=== PATIENT | male | born 1955 | race Caucasian/White ===

== ENCOUNTER 2020-07-02 10:21 | Inpatient (IN) | payer SELFPAY ==
[~2020-07-02] VITALS: Ht 182.9 cm; Wt 80.1 kg
--- NOTE | 2020-07-02 10:40 | ED Chest Pain ---
General Chief Complaint: Chest Pain Stated Complaint: CHEST PAIN Source: patient Exam Limitations: no limitations History of Present Illness Date Seen by Provider: Jul 02, 2020 Time Seen by Provider: 10:25 Initial Comments 65-year-old male presents with chest pain. Patient reports he started having chest pain yesterday. It has been on and off with the longest episode being 15 minutes. He does not recall anything that made it worse or better. He does not shortness of breath, nausea, vomiting, fever, chills. He did get mildly diaphoretic with one episode. Pain is kind mid substernal and epigastric. Patient denies any medications or medical conditions, he does smoke daily. Patient does not have any family history of early heart disease or heart attacks. Patient is not having any chest pain currently Allergies and Home Medications Allergies Coded Allergies: No Known Drug Allergies (Unverified , 07/02/20) Home Medications No Active Prescriptions or Reported Meds Patient Home Medication List Home Medication List Reviewed: Yes Review of Systems Review of Systems Constitutional: No chills, No fever Respiratory: Denies Cough, Denies Shortness of Air Cardiovascular: Chest Pain; Denies Irregular Heart Rate, Denies Lightheadedness, Denies Palpitations Gastrointestinal: Denies Abdominal Pain, Denies Diarrhea, Denies Nausea, Denies Vomiting Musculoskeletal: no symptoms reported Skin: no symptoms reported Psychiatric/Neurological: No Symptoms Reported Endocrine: No Symptoms Reported Hematologic/Lymphatic: No Symptoms Reported Past Wxmleds-Yjygqy-Adgyox Hx Past Med/Social Hx: Reviewed Nursing Past Med/Soc Hx Physical Exam Vital Signs Vital Signs - First Documented 07/02/20 10:42 Temp 36.0 Pulse 99 Resp 16 B/P (MAP) 172/90 (117) Pulse Ox 98 O2 Delivery Room Air Capillary Refill : Height, Weight, BMI Height: '" Weight: lbs. oz. kg; BMI Method: General Appearance: No Apparent Distress, WD/WN Neck: Full Range of Motion, Normal Inspection Respiratory: Lungs Clear, Normal Breath Sounds, No Accessory Muscle Use Cardiovascular: Regular Rate, Rhythm, Normal Peripheral Pulses Gastrointestinal: Non Tender, Soft Extremity: Normal Capillary Refill Neurologic/Psychiatric: Alert, Oriented x3, No Motor/Sensory Deficits, Normal Mood/Affect, filling machine operator II-XII Norm as Tested Skin: Normal Color, Warm/Dry Progress/Results/Core Measures Results/Orders Lab Results Laboratory Tests Test 07/02/20 10:34 Range/Units White Blood Count 7.8 4.3-11.0 10^3/uL Red Blood Count 5.12 4.35-5.85 10^6/uL Hemoglobin 14.6 13.3-17.7 G/DL Hematocrit 43 40-54 % Mean Corpuscular Volume 84 80-99 FL Mean Corpuscular Hemoglobin 29 25-34 PG Mean Corpuscular Hemoglobin Concent 34 32-36 G/DL Red Cell Distribution Width 13.2 10.0-14.5 % Platelet Count 327 130-400 10^3/uL Mean Platelet Volume 10.0 7.4-10.4 FL Immature Granulocyte % (Auto) 0 % Neutrophils (%) (Auto) 59 42-75 % Lymphocytes (%) (Auto) 25 12-44 % Monocytes (%) (Auto) 9 0-12 % Eosinophils (%) (Auto) 6 0-10 % Basophils (%) (Auto) 1 0-10 % Neutrophils # (Auto) 4.6 1.8-7.8 X 10^3 Lymphocytes # (Auto) 1.9 1.0-4.0 X 10^3 Monocytes # (Auto) 0.7 0.0-1.0 X 10^3 Eosinophils # (Auto) 0.5 H 0.0-0.3 10^3/uL Basophils # (Auto) 0.1 0.0-0.1 10^3/uL Immature Granulocyte # (Auto) 0.0 0.0-0.1 10^3/uL Prothrombin Time 12.4 12.2-14.7 SEC INR Comment 0.9 0.8-1.4 Activated Partial Thromboplast Time 26 24-35 SEC Sodium Level 139 135-145 MMOL/L Potassium Level 3.4 L 3.6-5.0 MMOL/L Chloride Level 103 98-107 MMOL/L Carbon Dioxide Level 23 21-32 MMOL/L Anion Gap 13 5-14 MMOL/L Blood Urea Nitrogen 12 7-18 MG/DL Creatinine 1.04 0.60-1.30 MG/DL Estimat Glomerular Filtration Rate > 60 BUN/Creatinine Ratio 12 Glucose Level 129 H 70-105 MG/DL Calcium Level 8.9 8.5-10.1 MG/DL Corrected Calcium 9.0 8.5-10.1 MG/DL Magnesium Level 1.9 1.6-2.4 MG/DL Total Bilirubin 0.2 0.1-1.0 MG/DL Aspartate Amino Transf (AST/SGOT) 15 5-34 U/L Alanine Aminotransferase (ALT/SGPT) 13 0-55 U/L Alkaline Phosphatase 137 H 40-136 U/L Troponin I 0.33 *H <0.30 NG/ML Pro-B-Type Natriuretic Peptide 1348.0 H <75.0 PG/ML Total Protein 7.2 6.4-8.2 GM/DL Albumin 3.9 3.2-4.5 GM/DL My Orders Orders - ROBBINS,JAMAAL L DO Cbc With Automated Diff (07/02/20 10:23) Magnesium (07/02/20 10:23) Chest 1 View Ap/Pa Only (07/02/20 10:23) Ekg Tracing (07/02/20 10:23) Comprehensive Metabolic Panel (07/02/20 10:23) Protime With Inr (07/02/20 10:23) Partial Thromboplastin Time (07/02/20 10:23) Monitor-Rhythm Ecg Trace Only (07/02/20 10:23) Lipid Panel (07/03/20 06:00) Ed Iv/Invasive Line Start (07/02/20 10:23) Troponin I Fs (07/02/20 10:23) Probnp Fs (07/02/20 10:23) Aspirin Chewable Tablet (Baby Aspirin Ch (07/02/20 11:45) Ticagrelor Tablet (Brilinta Tablet) (07/02/20 12:00) Medications Given in ED Current Medications Medications Dose Ordered Sig/Ceferino Route Start Time Stop Time Status Last Admin Dose Admin Aspirin 324 mg ONCE ONCE PO 07/02/20 11:45 07/02/20 11:46 DC 07/02/20 12:04 324 MG Ticagrelor 180 mg ONCE ONCE PO 07/02/20 12:00 07/02/20 12:01 DC 07/02/20 12:04 180 MG Vital Signs/I&O 07/02/20 10:42 Temp 36.0 Pulse 99 Resp 16 B/P (MAP) 172/90 (117) Pulse Ox 98 O2 Delivery Room Air Progress Progress Note : Time: 12:09 Progress Note Patient with nonspecific changes on EKG, no current chest pain. However he does have a slight bump in troponin. Discussed with Dr. Venegas and Dr. Ortega. We will transfer to [facility] for likely heart catheterization. Patient stable upon transfer. Initial ECG Impression Date: Jul 02, 2020 Initial ECG Impression Time: 10:20 Initial ECG Rate: 97 Initial ECG Rhythm: Normal Sinus Initial ECG Intervals WA 214 Initial ECG Impression: Nonspecific Changes Comment Patient with abnormal EKG, nonspecific changes with prolonged WA interval, likely LVH and left atrial enlargement. Nonspecific ST changes Diagnostic Imaging Diagonstic Imaging: Xray Plain Films/CT/US/NM/MRI: chest Comments [facility] [place], [place] NAME: JAZMÍN BURGER [facility] REC#: [id number] PT STATUS: REG ER : 1955 PHYSICIAN: JAMAAL ROBBINS DO ADMIT DATE: 07/02/20/ER FS Draft Date of Exam:07/02/20 CHEST 1 VIEW AP/PA ONLY INDICATION: Chest pain. Frontal chest obtained at 10:23 a.m. FINDINGS: Heart and mediastinal silhouette are normal in appearance. There are COPD changes. There is some scarring in the right apex with questionable small nodule. We have no previous studies for comparison. There is no consolidation or pleural fluid or pneumothorax. IMPRESSION: COPD changes with some right apical scar. There is a questionable small nodular density versus scar in the right apex, for which follow-up is recommended. Dictated on workstation # [id number] Dict: 07/02/20 1032 Trans: 07/02/20 1041 [id number] Interpreted by: SAI SOSA MD Electronically signed Departure Communication (Admissions) Time/Spoke to Admitting Phy: 11:45 Okay to admit, please consult Dr. Ortega Time/Spoke to Consulting Phy: 11:50 Please start give brilinta 180 mg, patient likely receive heart catheterization later today or in the morning Impression Primary Impression: Chest pain Qualified Codes: R07.9 - Chest pain, unspecified Additional Impression: Elevated troponin Disposition: 30 STILL A PATIENT Condition: Stable Admissions Decision to Admit Reason: Admit from ER (General) Decision to Admit/Date: Jul 02, 2020 Time/Decision to Admit Time: 11:40 Departure-Patient Inst. Scripts No Active Prescriptions or Reported Meds JAMAAL ROBBINS DO Jul 02, 2020 10:40
[2020-07-02 11:15] LABS: CARBON DIOXIDE 23 MMOL/L (21-32); CHLORIDE 103 MMOL/L (98-107); POTASSIUM 3.4 MMOL/L (3.6-5.0); SODIUM 139 MMOL/L (135-145)
[2020-07-02 11:16] LABS: ALANINE AMINOTRANSFERASE 13 U/L (0-55); ALBUMIN 3.9 GM/DL (3.2-4.5); ALKALINE PHOSPHATASE 137 U/L (40-136); BILIRUBIN,TOTAL 0.2 MG/DL (0.1-1.0); BUN/CREATININE RATIO 12; CALCIUM 8.9 MG/DL (8.5-10.1); CREATININE SERUM 1.04 MG/DL (0.60-1.30); GFR ESTIMATED > 60; GLUCOSE 129 MG/DL (70-105); MAGNESIUM 1.9 MG/DL (1.6-2.4); TOTAL PROTEIN 7.2 GM/DL (6.4-8.2)
[2020-07-02 11:20] LABS: INR 0.9 (0.8-1.4); PROTHROMBIN TIME PATIENT 12.4 SEC (12.2-14.7)
[2020-07-02 11:21] LABS: BASOPHILS % (AUTO) 1 % (0-10); EOSINOPHILS % (AUTO) 6 % (0-10); HEMATOCRIT 43 % (40-54); HEMOGLOBIN 14.6 G/DL (13.3-17.7); LYMPHOCYTES # (AUTO) 1.9 X 10^3 (1.0-4.0); LYMPHOCYTES % (AUTO) 25 % (12-44); MEAN CORPUSCULAR HEMOGLOBIN 29 PG (25-34); MEAN CORPUSCULAR HGB CONC 34 G/DL (32-36); MEAN CORPUSCULAR VOLUME 84 FL (80-99); MONOCYTES % (AUTO) 9 % (0-12); NEUTROPHILS # (AUTO) 4.6 X 10^3 (1.8-7.8); NEUTROPHILS % (AUTO) 59 % (42-75); PLATELET COUNT 327 10^3/uL (130-400); WHITE BLOOD COUNT 7.8 10^3/uL (4.3-11.0)
[2020-07-02 11:22] LABS: BASOPHILS # (AUTO) 0.1 10^3/uL (0.0-0.1); EOSINOPHILS # (AUTO) 0.5 10^3/uL (0.0-0.3); MONOCYTES # (AUTO) 0.7 X 10^3 (0.0-1.0)
[2020-07-02] MEDS ORDERED: ASPIRIN 81 MG CHEW (CHILDREN'S ASA) PO ONE (11:45)
[2020-07-02] MEDS ORDERED: TICAGRELOR 90 MG TABLET (BRILINTA) PO ONE (12:00)
[2020-07-02 12:47] VITALS: BP 175/98
--- NOTE | 2020-07-02 13:48 | NUR ---
JAZMÍN BURGER admitted to room 509-1, with an admitting diagnosis of CHEST PAIN, on 07/02/20 from ED IN [place] via AMBULANCE, accompanied by STAFF. JAZMÍN BURGER introduced to surroundings, call light, bed controls, phone, TV, temperature control, lights, meal times, smoking policy, visitor policy, side rail policy, bathrooms and showers. Patient Rights given to patient in the handbook. JAZMÍN BURGER verbalizes understanding that [facility] is not responsible for the loss or damage to any personal effects or valuables that are kept in the patients posession during their hospitalization. The following Patient Care Plans were discussed with the PATIENT: Discharge Planning, CHEST PAIN AND KNOWLEDGE. JAZMÍN BURGER verbalizes understanding of Interdisciplinary Patient Education. Patient and/or family were informed about the Rapid Response Team and its purpose.
--- NOTE | 2020-07-02 14:00 | NUR ---
DENIES CHEST PAT AT ADMISSION, STATES HE HAD CHEST PAIN THIS AM WHILE COOKING BREAKFAST AND WENT TO ED IN [place], DENIES ANY HOME MEDICATIONS
[2020-07-02] MEDS ORDERED: NS IV 1000 ML 1,000 ML ONE (14:02)
[2020-07-02] MEDS ORDERED: LIDOCAINE 1% INJ 20 ML 20 ML VIAL ONE (14:02)
[2020-07-02] MEDS ORDERED: HEParin (CATH LAB) 2,000 ML IV ONE (14:02)
[2020-07-02] MEDS ORDERED: fentaNYL INJECTION 100 MCG/2 ML AMP ONE (14:05)
[2020-07-02] MEDS ORDERED: MIDAZOLAM 5 MG/5 ML (VERSED) VIAL ONE (14:05)
--- NOTE | 2020-07-02 14:25 | NUR ---
TO HEART CATH PER BED.
[2020-07-02] MEDS ORDERED: CATHETER FLUSH 10 ML SYR IV PRN (14:30)
[2020-07-02] MEDS ORDERED: HEParin 1000 UNIT/ML (10ML VIAL) FOR BOLUS ONE (14:44)
[2020-07-02] MEDS ORDERED: VERAPAMIL 5 MG/2 ML (CALAN) VIAL IV ONE (14:44)
[2020-07-02] MEDS ORDERED: NITRO DRIP 25000 MCG/D5W 250 ML IV ONE (14:45)
--- NOTE | 2020-07-02 15:20 | Cardiac Procedure Note-CS/ASA ---
Pre-Procedure Note Pre-Op Procedure Note H&P Reviewed The H&P was reviewed, patient examined and no changes noted. Date H&P Reviewed: Jul 02, 2020 Time H&P Reviewed: 14:30 Conscious Sedation Pre-Proced Time 14:30 ASA Score 3 For ASA 3 and 4: Consider anesthesia and medical clearance. Also, for patients with a history of failed moderate sedation consider anesthesia. Airway Lungs Heart ASA score ASA 1: a normal healthy patient ASA 2: a patient with a mild systemic disease (mid diabetes, controlled hypertension, obesity ASA 3: a patient with a severe systemic disease that limits activity (angina, COPD, prior Myocardial infarction) ASA 4: a patient with an incapacitating disease that is a constant threat to life (CHF, renal failure) ASA 5: a moribund patient not expected to survive 24 hrs. (ruptured aneurysm) ASA 6: a declared brain- patient whose organs are being harvested. For emergent operations, add the letter E after the classification Mallampati Classification Grade 1 Sedation Plan Analgesia, Amnesia, Plan communicated to team members, Discussed options with patient/fam, Discussed risks with patient/fam The patient is an appropriate candidate to undergo the planned procedure, sedation, and anesthesia. The patient immediately re-assessed prior to indication. Karena VÁZQUEZ MD Jul 02, 2020 15:20
--- NOTE | 2020-07-02 15:20 | Consultation-Cardiology ---
HPI-Cardiology Cardiology Consultation: Date of Consultation 07/02/20 Date of Admission Attending Physician Ayana Braden MD Admitting Physician No,Local Physician Consulting Physician Karena ORTEGA MD HPI: Time Seen by a Provider: 13:00 Chief Complaint: chest pain this is a 65-year-old gentleman with history of active smoking. He presents with prolonged episode of chest pain for 20-30 minutes. Substernal. Mild sweating. No radiation. Mild to moderate intensity. No associated shortness of breath. Denies any other medical problems. Pertinent family history is negative. Review of Systems-Cardiology Review of Systems Constitutional: As described under HPI; No As described under HPI, No no symptoms reported, No chills, No fever, No lightheadedness Eyes: No As described under HPI, No no symptoms reported, No blindness, No blurred vision, No contact lenses, No drainage, No decreased acuity, No foreign body sensation, No pain, No vision change Ears/Nose/Throat: No As described under HPI, No no symptoms reported, No chronic hearing loss, No ear discharge, No ear pain, No nasal drainage, No ulcerations Respiratory: No no symptoms reported; As described under HPI; No As described under HPI, No cough, No orthopnea, No shortness of breath, No SOB with excertion Cardiovascular: No no symptoms reported; As described under HPI; No As described under HPI; chest pain; No edema, No irregular heart rate, No lightheadedness, No palpitations Gastrointestinal: No no symptoms reported, No As described under HPI, No abdomen distended, No abdominal pain, No blood streaked bowels, No constipation, No diarrhea, No nausea, No vomiting, No stool coloration changes Genitourinary: No As described under HPI, No burning, No dysuria, No discharge, No frequency, No flank pain, No hematuria, No urgency Skin: No rash, No skin related problems, No ulcerations Psychiatric/Neurological: No anxiety, No depression, No seizure, No focal weakness, No syncope Hematologic: No bleeding abnormalities FWF-Ojyhtp-Jkljgw Hx Patient Social History Alcohol Use: Occasionally Uses Recreational Drug Use: No Smoking Status: Current Everyday Smoker Type Used: Cigarettes Recent Foreign Travel: No Recent Infectious Disease Expo: No Hospitalization with Isolation: Denies Physical Abuse Screen: No Sexual Abuse: No Past Medical History PMH As described under Assessment. Allergies and Home Medications Allergies Coded Allergies: No Known Drug Allergies (Unverified , 07/02/20) Home Medications No Active Prescriptions or Reported Meds Patient Home Medication List Home Medication List Reviewed: Yes Physical Exam-Cardiology Physical Exam Vital Signs/I&O 07/02/20 07/02/20 07/02/20 07/02/20 10:42 12:47 13:48 14:37 Temp 36.0 36.1 36.6 Pulse 99 91 90 Resp 16 16 18 B/P (MAP) 172/90 (117) 175/98 163/106 Pulse Ox 98 98 97 97 O2 Delivery Room Air Room Air Room Air Room Air Capillary Refill : NONE Constitutional: appears stated age, AAO x 3; No apparent distress; well- developed, well-nourished HEENT: PERRL; No discharge; hearing is well preserved, oral hygience is good; No ulceration, No xanthelasmas are seen Neck: No carotid bruit; carotid pulses are 2 + bilaterally Respiratory: chest is bilaterally symmetric, lungs clear to auscultation Cardiovascular: regular rate-rhythm, S1 and S2; No diastolic murmur, No systolic murmur Gastrointestinal: soft, audible bowel sounds; No spleenomegaly Rectal: deferred Extremities: normal range of motion, non-tender, normal inspection; No clubbing, No cyanosis; no lower extremity edema bilateral; No significant edema Neurologic/Psychiatric: no motor/sensory deficits, alert, normal mood/affect, oriented x 3, power is 5/5 both on sides Skin: normal color, warm/dry; No rash, No ulcerations Data Review Labs Laboratory Tests 07/02/20 10:34: White Blood Count 7.8, Red Blood Count 5.12, Hemoglobin 14.6, Hematocrit 43, Mean Corpuscular Volume 84, Mean Corpuscular Hemoglobin 29, Mean Corpuscular Hemoglobin Concent 34, Red Cell Distribution Width 13.2, Platelet Count 327, Mean Platelet Volume 10.0, Immature Granulocyte % (Auto) 0, Neutrophils (%) (Auto) 59, Lymphocytes (%) (Auto) 25, Monocytes (%) (Auto) 9, Eosinophils (%) (Auto) 6, Basophils (%) (Auto) 1, Neutrophils # (Auto) 4.6, Lymphocytes # (Auto) 1.9, Monocytes # (Auto) 0.7, Eosinophils # (Auto) 0.5H, Basophils # (Auto) 0.1, Immature Granulocyte # (Auto) 0.0, Prothrombin Time 12.4, INR Comment 0.9, Activated Partial Thromboplast Time 26, Sodium Level 139, Potassium Level 3.4L, Chloride Level 103, Carbon Dioxide Level 23, Anion Gap 13, Blood Urea Nitrogen 12, Creatinine 1.04, Estimat Glomerular Filtration Rate > 60, BUN/Creatinine Ratio 12, Glucose Level 129H, Calcium Level 8.9, Corrected Calcium 9.0, Magnesium Level 1.9, Total Bilirubin 0.2, Aspartate Amino Transf (AST/SGOT) 15, Alanine Aminotransferase (ALT/SGPT) 13, Alkaline Phosphatase 137H, Troponin I 0.33*H, Pro-B-Type Natriuretic Peptide 1348.0H, Total Protein 7.2, Albumin 3.9 ECG Impression ECG Initial ECG Rhythm: Normal Sinus Comment LVH, prolonged WI interval. Left atrial abnormality A/P-Cardiology Assessment/Admission Diagnosis non-STEMI, active smoking Plan non-STEMI, aspirin, Brilinta. Discussed at length with the patient and recommended coronary angiography with possible intervention. 1-2 percent risk of complication discussed including . Patient accepted all risks and would like to proceed with coronary angiography. Smoking cessation was strongly recommended. Echocardiogram. Thank you for your consultation. Please call me if you have any questions. Yvonne Ortega MD, FACP, FACC, FSCAI, FHRS, CCDS Interventional Cardiology Cardiac Electrophysiology Vascular Medicine and Endovascular Interventions Clinical Quality Measures AMI/AHF: ASA po Prior to arrival: No DVT/VTE Risk/Contraindication: Risk Factor Score Per Nursin RFS Level Per Nursing on Admit: 4+=Very High Karena ORTEGA MD Jul 02, 2020 15:20
[2020-07-02] MEDS ORDERED: FLU QUADRIvalent (3YOA+) 60 mcg/0.5 ml 2020-21 (AFLURIA) IM ONE (15:30)
--- NOTE | 2020-07-02 15:30 | NUR ---
RECEIVED FROM HEART CATH, VASC BAND INTACT TO RIGHT WRIST, NO BLEEDING, RADIAL AND BRACHIAL PULSE PRESENT.
--- NOTE | 2020-07-02 15:31 | Coronary Angiography & PCI ---
Coronary Angiography & PCI DATE OF PROCEDURE: 07/02/20 INDICATION: NSTEMI PREOPERATIVE DIAGNOSIS: NSTEMI POSTOPERATIVE DIAGNOSIS: Severe first diagonal stenosis treated successfully with a drug-eluting stent. HISTORY: 65-year-old gentleman with active smoking presents with prolonged episode of chest pain with positive cardiac enzymes. Working diagnosis non- STEMI. Therefore, the patient was scheduled for coronary angiography. PROCEDURES PERFORMED: 1.Coronary angiography. 2.Left heart catheterization. 3.PCI to the first diagonal artery with a drug-eluting stent. COMPLICATIONS: None. SPECIMENS: None. ESTIMATED BLOOD LOSS: 10 mL ANESTHESIA: Conscious sedation ANTICOAGULATION: IV heparin CONTRAST: 100 mL. FLUOROSCOPY: 4.5 minutes. FLOUROSCOPY DOSE: 601 mgy. PROCEDURE DETAILS: The patient is a 65 male and was brought to the energy systems laboratory director after informed consent was taken. All the risks and complications were explained in detail; this included the risk of bleeding, vascular damage, stroke, [place] and even . The patient was draped and prepped in the usual sterile fashion. Access was gained in the right radial artery with a 6 [place] sheath. Coronary angiography and left heart catheterization was performed with the Kelliher cath eter. FINDINGS: 1.Left main: patent. 2.LAD: mild mid disease. A first diagonal artery has severe stenosis with haziness. Stenosis severity is 99 percent. This is the culprit artery. 3.Left circumflex artery: luminal irregularities. 4.RCA: dominant artery with noqg-hl-yftaewlz diffuse disease in the proximal and midsegment. 5.Left heart catheterization: LV pressure 112/2 mmHg. LVEDP 4 mmHg. Aortic pressure 115/82 mmHg. Normal LV function with no wall motion abnormalities. No gradient across the aortic valve. RECOMMENDATIONS: PCI to the first diagonal artery is recommended. INTERVENTION DETAILS: JL 3.5 guide catheter, whisper extra-support guidewire, IV heparin. Patient received Brilinta 180 mg bolus before the angiogram. The lesion was crossed with the whisper wire. The tip of the wire was placed in the distal first diagonal artery. Direct stenting with a resolute archie 2.0 x 15 mm drug-eluting stent at 14 stefanie for 33 seconds. No residual stenosis with IVELISSE-3 flow. Excellent results post stenting. Patient tolerated procedure well and did not have any complication. He left the catheter lab with stable hemodynamics. CONCLUSIONS: 1. severe first diagonal artery stenosis treated successfully with a drug- eluting stent. 2. Mild to moderate disease in RCA and mild disease in LAD. 3. Dual antiplatelet therapy for at least a year. Aggressive secondary prevention measures. 4. Smoking cessation was strongly recommended. Yvonne Ortega MD, FACP, FACC, [facility] Interventional Cardiology Karena ORTEGA MD Jul 02, 2020 15:31
[2020-07-02] MEDS ORDERED: PATIENT MAY USE OWN MEDS, ALL PO SCH (15:45)
[2020-07-02] MEDS ORDERED: FUROSEMIDE 40 MG/4 ML INJ (LASIX) IVP NR (16:30)
[2020-07-02] MEDS ORDERED: PHARMACY TO DOSE SC SCH (16:30)
[2020-07-02] MEDS ORDERED: ENOXAPARIN 40 MG/0.4 ML (LOVENOX) SYR SC SCH (16:30)
--- NOTE | 2020-07-02 16:30 | NUR ---
BP 164/100, DR VÁZQUEZ INFORMED OF ELEVATED BLOOD PRESSURES, INSTRUCTED TO START BP MEDS TODAY
[2020-07-02] MEDS ORDERED: meTOprolol TARTRATE 25 MG (LOPRESSOR) TABLET ONE (16:41)
[2020-07-02] MEDS ORDERED: lisINopril 10 MG (PRINIVIL) TABLET ONE (16:41)
[2020-07-02] MEDS: meTOprolol TARTRATE 25 MG (LOPRESSOR) TABLET PO SCH ×2 (16:44→16:47)
[2020-07-02] MEDS: lisINopril 10 MG (PRINIVIL) TABLET PO SCH (16:45)
[2020-07-02] MEDS: NS IV 1000 ML 1,000 ML IV SCH ×2 (16:45→23:39)
--- NOTE | 2020-07-02 17:43 | NUR ---
TROPONIN 1.271, RESULTS CALLED TO DR VÁZQUEZ, NO NEW ORDERS
--- NOTE | 2020-07-02 17:45 | NUR ---
VASC BAND REMOVED, RADIAL PULSE STRONG, FINGERS WARM, DENIES NUMBNESS OR TINGLING OF FINGERS, GAUZE AND BAND AIDE APPLIED TO HEART CATH SITE.
[2020-07-02] MEDS: TICAGRELOR 90 MG TABLET (BRILINTA) PO SCH (20:48)
[2020-07-02] MEDS: CATHETER FLUSH 10 ML SYR IV SCH (20:48)
--- NOTE | 2020-07-02 23:30 | NUR ---
DR. VÁZQUEZ CALLED AT THIS TIME AND NOTIFIED OF CRITICAL TROPONIN OF 2.680. NO NEW ORDERS AT THIS TIME.
[2020-07-03 04:36] LABS: BASOPHILS # (AUTO) 0.1 10^3/uL (0.0-0.1); BASOPHILS % (AUTO) 1 % (0-10); EOSINOPHILS # (AUTO) 0.4 10^3/uL (0.0-0.3); EOSINOPHILS % (AUTO) 4 % (0-10); HEMATOCRIT 40 % (40-54); HEMOGLOBIN 13.7 g/dL (13.3-17.7); LYMPHOCYTES # (AUTO) 1.7 10^3/uL (1.0-4.0); LYMPHOCYTES % (AUTO) 19 % (12-44); MEAN CORPUSCULAR HEMOGLOBIN 28 pg (25-34); MEAN CORPUSCULAR HGB CONC 34 g/dL (32-36); MEAN CORPUSCULAR VOLUME 83 fL (80-99); MEAN PLATELET VOLUME 9.5 fL (9.0-12.2); MONOCYTES # (AUTO) 0.6 10^3/uL (0.0-1.0); MONOCYTES % (AUTO) 7 % (0-12); NEUTROPHILS % (AUTO) 68 % (42-75); PLATELET COUNT 316 10^3/uL (130-400); WHITE BLOOD COUNT 8.8 10^3/uL (4.3-11.0)
[2020-07-03 04:51] LABS: ALBUMIN 3.6 GM/DL (3.2-4.5); CHLORIDE 106 MMOL/L (98-107); POTASSIUM 3.2 MMOL/L (3.6-5.0); SODIUM 139 MMOL/L (135-145)
[2020-07-03 04:52] LABS: CALCIUM 8.4 MG/DL (8.5-10.1)
[2020-07-03 04:53] LABS: GLUCOSE 103 MG/DL (70-105)
[2020-07-03 04:54] LABS: TOTAL PROTEIN 6.9 GM/DL (6.4-8.2)
[2020-07-03 04:55] LABS: BILIRUBIN,TOTAL 0.4 MG/DL (0.1-1.0); CARBON DIOXIDE 19 MMOL/L (21-32)
[2020-07-03 04:57] LABS: ALKALINE PHOSPHATASE 117 U/L (40-136); CREATININE SERUM 0.99 MG/DL (0.60-1.30); GFR ESTIMATED > 60
[2020-07-03 04:58] LABS: BUN/CREATININE RATIO 13
[2020-07-03 05:00] LABS: ALANINE AMINOTRANSFERASE 13 U/L (0-55)
--- NOTE | 2020-07-03 05:20 | NUR ---
DR. VÁZQUEZ NOTIFIED OF CRITICAL TROPONIN LEVEL OF 2.401. PT DENIES CHEST PAIN. NO NEW ORDERS AT THIS TIME.
[2020-07-03] MEDS: CATHETER FLUSH 10 ML SYR IV SCH ×3 (06:45→19:48)
[2020-07-03] MEDS: ENOXAPARIN 40 MG/0.4 ML (LOVENOX) SYR SC SCH (06:45)
[2020-07-03] MEDS ORDERED: lisINopril 40 MG (PRINIVIL) TABLET PO SCH (09:00)
[2020-07-03] MEDS: lisINopril 10 MG (PRINIVIL) TABLET PO SCH (09:29)
[2020-07-03] MEDS: TICAGRELOR 90 MG TABLET (BRILINTA) PO SCH ×2 (09:29→19:47)
[2020-07-03] MEDS: ASPIRIN E.C. 81 MG (ECOTRIN) TAB PO SCH (09:29)
[2020-07-03] MEDS: meTOprolol TARTRATE 25 MG (LOPRESSOR) TABLET PO SCH ×2 (09:29→19:47)
[2020-07-03] MEDS: NS IV 1000 ML 1,000 ML IV SCH ×2 (09:47→18:29)
--- NOTE | 2020-07-03 10:29 | NUR ---
SPOKE WITH THE PT TO COMPLETE THE MED REC PT DENIES TAKING ANY PRESCRIPTION OR OTC MEDICATIONS
[2020-07-03] MEDS ORDERED: meTOprolol TARTRATE 50 MG (LOPRESSOR) TAB PO NR (10:45)
--- NOTE | 2020-07-03 13:36 | Cardiology Progress Note ---
Cardiology SOAP Progress Note Subjective: no further chest pain. Objective: I&O/Vital Signs 07/03/20 07/03/20 07/03/20 07/03/20 03:00 03:30 07:00 07:21 Temp 36.2 36.8 Pulse 84 79 89 Resp 16 19 B/P (MAP) 134/96 135/95 Pulse Ox 95 95 O2 Delivery Room Air Room Air Room Air 07/03/20 07/03/20 07/03/20 07/03/20 08:00 09:00 12:00 12:00 Temp 37.2 Pulse 66 Resp 20 B/P (MAP) 142/104 Pulse Ox 97 97 98 O2 Delivery Room Air Room Air Room Air Room Air 07/03/20 13:00 Pulse 66 07/03/20 00:00 Intake Total 600 ml Output Total 900 ml Balance -300 ml Constitutional: appears stated age, AAO x 3; No apparent distress; well- developed, well-nourished Respiratory: chest is bilaterally symmetric, lungs clear to auscultation Cardiovascular: regular rate-rhythm, S1 and S2; No diastolic murmur, No systolic murmur Gastrointestional: soft, audible bowel sounds; No spleenomegaly Extremities: normal range of motion, non-tender, normal inspection; No clubbing, No cyanosis; no lower extremity edema bilateral; No significant edema Neurologic/Psychiatric: no motor/sensory deficits, alert, normal mood/affect, oriented x 3, power is 5/5 both on sides Skin: normal color, warm/dry; No rash, No ulcerations Results/Procedures: Labs Laboratory Tests 07/02/20 15:59: Troponin I 1.271*H 07/02/20 22:20: Troponin I 2.680*H 07/03/20 04:20: Troponin I 2.401*H, White Blood Count 8.8, Red Blood Count 4.86, Hemoglobin 13.7, Hematocrit 40, Mean Corpuscular Volume 83, Mean Corpuscular Hemoglobin 28, Mean Corpuscular Hemoglobin Concent 34, Red Cell Distribution Width 12.9, Platelet Count 316, Mean Platelet Volume 9.5, Immature Granulocyte % (Auto) 1, Neutrophils (%) (Auto) 68, Lymphocytes (%) (Auto) 19, Monocytes (%) (Auto) 7, Eosinophils (%) (Auto) 4, Basophils (%) (Auto) 1, Neutrophils # (Auto) 6.0, Lymphocytes # (Auto) 1.7, Monocytes # (Auto) 0.6, Eosinophils # (Auto) 0.4H, Basophils # (Auto) 0.1, Immature Granulocyte # (Auto) 0.1, Sodium Level 139, Potassium Level 3.2L, Chloride Level 106, Carbon Dioxide Level 19L, Anion Gap 14, Blood Urea Nitrogen 13, Creatinine 0.99, Estimat Glomerular Filtration Rate > 60, BUN/Creatinine Ratio 13, Glucose Level 103, Calcium Level 8.4L, Corrected Calcium 8.7, Total Bilirubin 0.4, Aspartate Amino Transf (AST/SGOT) 22, Alanine Aminotransferase (ALT/SGPT) 13, Alkaline Phosphatase 117, Total Protein 6.9, Albumin 3.6 A/P: Assessment/Dx: non-STEMI, Nonischemic dilated cardiomyopathy, active smoking Plan: non-STEMI, aspirin, Brilinta. coronary angiography showed severe first diagonal artery stenosis treated successfully with a drug-eluting stent. Moderate disease in the RCA and LAD as well. Aggressive secondary prevention measures. Smoking cessation was strongly recommended. echocardiogram showed dilated cardiomyopathy with an EF of 25 cent. I discussed at length with the patient and recommended LifeVest for primary prevention of sudden cardiac . The patient consents for a lifevest. optimal medical therapy for cardiomyopathy started with SNEHAL inhibitor and beta layla. Patient can follow with Dr. Rosenbaum as an outpatient. Thank you for your consultation. Please call me if you have any questions. Yvonne Ortega MD, FACP, FACC, FSCAI, FHRS, CCDS Interventional Cardiology Cardiac Electrophysiology Vascular Medicine and Endovascular Interventions Clinical Quality Measures AMI/AHF: ASA po Prior to arrival: Karena Hall MD Jul 03, 2020 13:36
--- NOTE | 2020-07-03 15:12 | History & Physical ---
History of Present Illness History of Present Illness Reason for visit/HPI 65 yo M admitted for chest pain; he initially presented to [facility]. Patient reports having chest pain that would come and go. He denies any history of cardiac issues. He is currently unemployed. 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 This summer was a hard time due to no income. Patient reports the only cardiac family history is his dad had heart attack in his 80s. Risk factors: smokes cigarettes daily, uses methamphetamine (last use 1 week ago he thinks). He denies frequent alcohol use, denies cocaine use. reviewed pmh, psh, sh. Date of Admission Jul 02, 2020 at 12:00 Date Seen by a Provider: Jul 03, 2020 Time Seen by a Provider: 16:01 I consulted on this patient on 07/03/20 15:09 Attending Physician Aayna Braden MD Admitting Physician No,Local Physician Consult Allergies and Home Medications Allergies Coded Allergies: No Known Drug Allergies (Unverified , 07/02/20) Home Medications Unable to Obtain Active Prescriptions or Reported Meds Patient Home Medication List Home Medication List Reviewed: Yes Past Jucwpaa-[id number]-Ieivef Hx Patient Social History Employed/Student: unemployed Alcohol Use: Occasionally Uses Recreational Drug Use: No Smoking Status: Current Everyday Smoker Type Used: Cigarettes Physical Abuse Screen: No Sexual Abuse: No Recent Foreign Travel: No Contact w/other who traveled: No Recent Hopitalizations: No Recent Infectious Disease Expo: No Seasonal Allergies Seasonal Allergies: No Surgeries No Respiratory Yes Currently Using CPAP: No Currently Using BIPAP: No Cardiovascular No Neurological No Genitourinary No Gastrointestinal No Musculoskeletal No Endocrine History of Endocrine Disorders: No HEENT History of HEENT Disorders: No Cancer No Psychosocial History of Psychiatric Problem: No Integumentary History of Skin or Integumenta: No Blood Transfusions History of Blood Disorders: No Review of Systems Review of Systems General: No Chills, No Night Sweats HEENT: No Head Aches, No Visual Changes Pulmonary: No Dyspnea; Cough Cardiovascular: No: Chest Pain, Palpitations Gastrointestinal: No: Nausea, Vomiting, Abdominal Pain Genitourinary: No Dysuria Neurological: No: Weakness Physical Exam Vital Signs Vital Signs - First Documented 07/02/20 10:42 Temp 36.0 Pulse 99 Resp 16 B/P (MAP) 172/90 (117) Pulse Ox 98 O2 Delivery Room Air Capillary Refill : Less Than 3 Seconds Height, Weight, BMI Height: '" Weight: lbs. oz. kg; 22.12 BMI Method: General Appearance: No Apparent Distress (unkempt) HEENT: PERRL/EOMI (dysconjugate gaze) Neck: Non Tender, Supple Respiratory: Chest Non Tender, Lungs Clear, Normal Breath Sounds, No Accessory Muscle Use, No Respiratory Distress Cardiovascular: Regular Rate, Rhythm, No Edema Gastrointestinal: Non Tender, Soft Rectal: Deferred Back: Normal Inspection Extremity: Non Tender, No Calf Tenderness Neurologic/Psychiatric: Alert, Oriented x3 Skin: Warm/Dry Assessment/Plan Assessment/Plan Admission Dx NSTEMI Chest pain Admission Status: Inpatient Order (span 2 midnights) Reason for Inpatient Admission: Patient admitted for chest pain and intervention- he will require over 2 midnights as his ejection fraction is low and he will need a lifevest prior to discharge. Assessment and Plan 07/03/20 NSTEMI Coronary artery disease - s/p PCI first diagonal artery stenosis with drug- eluting stent- RCA/LAD -moderate disease. now on aspirin Brilinta. Dilated cardiomyopathy Chronic systolic congestive heart failure- started on ACEI, beta layla. LVEF ~25% Dispo: case management working on life vest- recommend smoking cessation and lifestyle modifications. Problems: (1) Chronic systolic congestive heart failure (2) Dilated cardiomyopathy (3) Amphetamine abuse (4) Chest pain Qualifiers: Qualified Codes: R07.9 - Chest pain, unspecified (5) Elevated troponin Clinical Quality Measures AMI/AHF: ASA po Prior to arrival: No DVT/VTE Risk/Contraindication: Risk Factor Score Per Nursin RFS Level Per Nursing on Admit: 4+=Very High ARIEL LANZA MD Jul 03, 2020 15:12
--- NOTE | 2020-07-03 15:45 | NUR ---
Smoking cessation education order rec'd. rapport established through motivational interviewing. Patient expresses he is not quite ready to stop smoking abruptly but is willing to take the educational handout with [facility] information on it. Patient also expresses frustration that he is unable to leave until Monday because he must wait for a lifevest device first. We discussed why he is needing the life vest, patient fully understands and is willing to wait for it. Enc. offered, accepted. patient requests lights out so he can see the TV better and rest. call light within reach, requests met before leaving patient to rest.
[2020-07-03] MEDS ORDERED: NICOTINE 2 MG GUM (NICORETTE) PO PRN (16:15)
--- NOTE | 2020-07-03 16:31 | NUR ---
DISCHARGE PLANNING: Patient has need of a [employer] life vest for discharge. Social Service consulted to assist in the application process. This RN assisted the patient in obtaining a copy of his Card Services statement to send with the [email or web address] financial assistance packet. Assisted the patient in filling out the application then faxed to [employer] the completed packet. Anticipate that patient will be able to get this and discharge sometime this weekend. Application and Card records are in the chart if they are needed,
[2020-07-03] MEDS: NICOTINE 21 MG (NICODERM) PATCH TD SCH ×2 (16:37→17:49)
[2020-07-03] MEDS: KCL 20 MEQ TAB (K-DUR) PO SCH (16:37)
--- NOTE | 2020-07-03 18:35 | NUR ---
Bedside report given to Abbi at this time.
[2020-07-03] MEDS: MELATONIN 3 MG TABLET PO SCH (19:48)
[2020-07-04] MEDS: LORazepam 1 MG (ATIVAN) TAB PO PRN ×2 (01:14→23:25)
[2020-07-04] MEDS: NS IV 1000 ML 1,000 ML IV SCH ×2 (03:48→17:39)
[2020-07-04] MEDS: ENOXAPARIN 40 MG/0.4 ML (LOVENOX) SYR SC SCH (05:03)
[2020-07-04] MEDS: KCL 20 MEQ TAB (K-DUR) PO SCH (05:04)
[2020-07-04] MEDS: CATHETER FLUSH 10 ML SYR IV SCH ×3 (05:04→19:39)
[2020-07-04 05:21] LABS: BASOPHILS # (AUTO) 0.1 10^3/uL (0.0-0.1); BASOPHILS % (AUTO) 1 % (0-10); EOSINOPHILS # (AUTO) 0.4 10^3/uL (0.0-0.3); EOSINOPHILS % (AUTO) 5 % (0-10); HEMATOCRIT 37 % (40-54); HEMOGLOBIN 12.3 g/dL (13.3-17.7); LYMPHOCYTES # (AUTO) 2.3 10^3/uL (1.0-4.0); LYMPHOCYTES % (AUTO) 28 % (12-44); MEAN CORPUSCULAR HEMOGLOBIN 29 pg (25-34); MEAN CORPUSCULAR HGB CONC 33 g/dL (32-36); MEAN CORPUSCULAR VOLUME 87 fL (80-99); MEAN PLATELET VOLUME 9.8 fL (9.0-12.2); MONOCYTES # (AUTO) 0.6 10^3/uL (0.0-1.0); MONOCYTES % (AUTO) 8 % (0-12); NEUTROPHILS # (AUTO) 4.5 10^3/uL (1.8-7.8); NEUTROPHILS % (AUTO) 57 % (42-75); PLATELET COUNT 309 10^3/uL (130-400); WHITE BLOOD COUNT 7.9 10^3/uL (4.3-11.0)
[2020-07-04 05:34] LABS: CHLORIDE 110 MMOL/L (98-107); POTASSIUM 3.6 MMOL/L (3.6-5.0); SODIUM 140 MMOL/L (135-145)
[2020-07-04 05:35] LABS: CALCIUM 7.9 MG/DL (8.5-10.1)
[2020-07-04 05:36] LABS: GLUCOSE 92 MG/DL (70-105)
[2020-07-04 05:37] LABS: CARBON DIOXIDE 19 MMOL/L (21-32)
[2020-07-04 05:40] LABS: CREATININE SERUM 0.81 MG/DL (0.60-1.30); GFR ESTIMATED > 60
[2020-07-04 05:41] LABS: BUN/CREATININE RATIO 16
[2020-07-04] MEDS: lisINopril 10 MG (PRINIVIL) TABLET PO SCH (08:20)
[2020-07-04] MEDS: meTOprolol TARTRATE 25 MG (LOPRESSOR) TABLET PO SCH ×2 (08:20→19:39)
[2020-07-04] MEDS: ASPIRIN E.C. 81 MG (ECOTRIN) TAB PO SCH (08:20)
[2020-07-04] MEDS: TICAGRELOR 90 MG TABLET (BRILINTA) PO SCH ×2 (08:20→19:39)
[2020-07-04] MEDS: NICOTINE 21 MG (NICODERM) PATCH TD SCH (08:24)
[2020-07-04] MEDS: NICOTINE PATCH REMOVAL TP SCH (08:32)
--- NOTE | 2020-07-04 10:41 | Progress Note ---
Subjective Subjective Date Seen by Provider: Jul 04, 2020 Time Seen by Provider: 10:39 Denies overnight events. He was transferred down to 4th last night. Pt this am was asleep. He denies any chest pain. He has calmed down. No complaints this AM. Review of Systems General: No Chills, No Night Sweats HEENT: No Head Aches, No Visual Changes Pulmonary: No Dyspnea; Cough Cardiovascular: No: Chest Pain, Palpitations Gastrointestinal: No: Nausea, Vomiting, Abdominal Pain Genitourinary: No Dysuria Neurological: No: Weakness Objective Exam Vital Signs Vital Signs Date Time Temp Pulse Resp B/P (MAP) Pulse Ox O2 Delivery O2 Flow Rate FiO2 07/04/20 08:00 97 Room Air 07/04/20 07:25 36.6 70 17 129/77 94 Nasal Cannula 07/04/20 03:49 36.6 70 18 123/79 96 Nasal Cannula 07/04/20 01:00 65 07/03/20 23:08 36.3 65 20 127/78 97 Room Air 07/03/20 20:00 Room Air 07/03/20 19:51 37.1 71 20 152/82 97 Room Air 07/03/20 19:00 61 07/03/20 18:29 67 18 151/85 97 Room Air 07/03/20 16:00 97 Room Air 07/03/20 16:00 37.2 48 18 157/98 97 Room Air 07/03/20 13:00 66 07/03/20 12:00 37.2 66 20 142/104 98 Room Air 07/03/20 12:00 97 Room Air I & O 07/04/20 07:00 Intake Total 2420 ml Output Total 1200 ml Balance 1220 ml General Appearance: No Apparent Distress (unkempt) HEENT: PERRL/EOMI (dysconjugate gaze) Neck: Non Tender, Supple Respiratory: Chest Non Tender, Lungs Clear, Normal Breath Sounds, No Accessory Muscle Use, No Respiratory Distress Cardiovascular: Regular Rate, Rhythm, No Edema Gastrointestinal: Non Tender, Soft Rectal: Deferred Back: Normal Inspection Extremity: Non Tender, No Calf Tenderness Neurologic/Psychiatric: Alert, Oriented x3 Skin: Warm/Dry Results Lab Laboratory Tests 07/04/20 05:05: White Blood Count 7.9, Red Blood Count 4.30, Hemoglobin 12.3L, Hematocrit 37L, Mean Corpuscular Volume 87, Mean Corpuscular Hemoglobin 29, Mean Corpuscular Hemoglobin Concent 33, Red Cell Distribution Width 13.4, Platelet Count 309, Mean Platelet Volume 9.8, Immature Granulocyte % (Auto) 0, Neutrophils (%) (Auto) 57, Lymphocytes (%) (Auto) 28, Monocytes (%) (Auto) 8, Eosinophils (%) (Auto) 5, Basophils (%) (Auto) 1, Neutrophils # (Auto) 4.5, Lymphocytes # (Auto) 2.3, Monocytes # (Auto) 0.6, Eosinophils # (Auto) 0.4H, Basophils # (Auto) 0.1, Immature Granulocyte # (Auto) 0.0, Sodium Level 140, Potassium Level 3.6, Chloride Level 110H, Carbon Dioxide Level 19L, Anion Gap 11, Blood Urea Nitrogen 13, Creatinine 0.81, Estimat Glomerular Filtration Rate > 60, BUN/Creatinine Ratio 16, Glucose Level 92, Calcium Level 7.9L Assessment/Plan Assessment/Plan Admission Dx NSTEMI Chest pain Assessment and Plan 07/03/20 NSTEMI Coronary artery disease - s/p PCI first diagonal artery stenosis with drug- eluting stent- RCA/LAD -moderate disease. now on aspirin Brilinta. Dilated cardiomyopathy Chronic systolic congestive heart failure- started on ACEI, beta layla. LVEF ~25% 07/04/20- continue to monitor- medication management- awaiting life vest. Dispo: case management working on life vest- recommend smoking cessation and lifestyle modifications. Problems: (1) Chronic systolic congestive heart failure (2) Dilated cardiomyopathy (3) Amphetamine abuse (4) Chest pain Qualifiers: Qualified Codes: R07.9 - Chest pain, unspecified (5) Elevated troponin Admission Dx NSTEMI Chest pain Clinical Quality Measures Admission Status Admission Dx NSTEMI Chest pain AMI/AHF: ASA po Prior to arrival: No DVT/VTE Risk/Contraindication: Risk Factor Score Per Nursin RFS Level Per Nursing on Admit: 4+=Very High ARIEL LANZA MD Jul 04, 2020 10:41
--- NOTE | 2020-07-04 16:22 | Cardiology Progress Note ---
Cardiology SOAP Progress Note Subjective: No chest pain. Objective: I&O/Vital Signs 07/04/20 07/04/20 07/04/20 07/04/20 07:25 08:00 12:20 12:43 Temp 36.6 37.1 Pulse 70 78 79 Resp 17 19 B/P (MAP) 129/77 159/92 Pulse Ox 94 97 94 O2 Delivery Nasal Cannula Room Air Nasal Cannula 07/04/20 16:00 Temp 36.6 Pulse 73 Resp 18 B/P (MAP) 160/89 Pulse Ox 95 O2 Delivery Nasal Cannula O2 Flow Rate 3.00 07/04/20 00:00 Intake Total 1020 ml Output Total 700 ml Balance 320 ml Constitutional: appears stated age, AAO x 3; No apparent distress; well- developed, well-nourished Respiratory: chest is bilaterally symmetric, lungs clear to auscultation Cardiovascular: regular rate-rhythm, S1 and S2; No diastolic murmur, No systolic murmur Gastrointestional: soft, audible bowel sounds; No spleenomegaly Extremities: normal range of motion, non-tender, normal inspection; No clubbing, No cyanosis; no lower extremity edema bilateral; No significant edema Neurologic/Psychiatric: no motor/sensory deficits, alert, normal mood/affect, oriented x 3, power is 5/5 both on sides Skin: normal color, warm/dry; No rash, No ulcerations Results/Procedures: Labs Laboratory Tests 07/04/20 05:05: White Blood Count 7.9, Red Blood Count 4.30, Hemoglobin 12.3L, Hematocrit 37L, Mean Corpuscular Volume 87, Mean Corpuscular Hemoglobin 29, Mean Corpuscular Hemoglobin Concent 33, Red Cell Distribution Width 13.4, Platelet Count 309, Me an Platelet Volume 9.8, Immature Granulocyte % (Auto) 0, Neutrophils (%) (Auto) 57, Lymphocytes (%) (Auto) 28, Monocytes (%) (Auto) 8, Eosinophils (%) (Auto) 5, Basophils (%) (Auto) 1, Neutrophils # (Auto) 4.5, Lymphocytes # (Auto) 2.3, Monocytes # (Auto) 0.6, Eosinophils # (Auto) 0.4H, Basophils # (Auto) 0.1, Immature Granulocyte # (Auto) 0.0, Sodium Level 140, Potassium Level 3.6, Chloride Level 110H, Carbon Dioxide Level 19L, Anion Gap 11, Blood Urea Nitrogen 13, Creatinine 0.81, Estimat Glomerular Filtration Rate > 60, BUN/Creatinine Ratio 16, Glucose Level 92, Calcium Level 7.9L A/P: Assessment/Dx: non-STEMI, Nonischemic dilated cardiomyopathy, active smoking Plan: non-STEMI, aspirin, Brilinta. coronary angiography showed severe first diagonal artery stenosis treated successfully with a drug-eluting stent. Moderate disease in the RCA and LAD as well. Aggressive secondary prevention measures. Smoking cessation was strongly recommended. echocardiogram showed dilated cardiomyopathy with an EF of 25 cent. I discussed at length with the patient and recommended LifeVest for primary prevention of sudden cardiac . The patient consents for a lifevest. We are awaiting the LifeVest. optimal medical therapy for cardiomyopathy started with SNEHAL inhibitor and beta layla. Patient can follow with Dr. Rosenbaum as an outpatient. Thank you for your consultation. Please call me if you have any questions. Yvonne Ortega MD, FACP, FACC, FSCAI, FHRS, CCDS Interventional Cardiology Cardiac Electrophysiology Vascular Medicine and Endovascular Interventions Clinical Quality Measures AMI/AHF: ASA po Prior to arrival: Karena Hall MD Jul 04, 2020 16:22
[2020-07-04] MEDS: MELATONIN 3 MG TABLET PO SCH (19:39)
[2020-07-05] MEDS: ENOXAPARIN 40 MG/0.4 ML (LOVENOX) SYR SC SCH (05:58)
[2020-07-05] MEDS: CATHETER FLUSH 10 ML SYR IV SCH ×3 (05:58→19:33)
[2020-07-05] MEDS: KCL 20 MEQ TAB (K-DUR) PO SCH (05:58)
[2020-07-05] MEDS: ASPIRIN E.C. 81 MG (ECOTRIN) TAB PO SCH (08:40)
[2020-07-05] MEDS: TICAGRELOR 90 MG TABLET (BRILINTA) PO SCH ×2 (08:40→19:32)
[2020-07-05] MEDS: NICOTINE PATCH REMOVAL TP SCH (08:40)
[2020-07-05] MEDS: NICOTINE 14 MG (NICODERM) PATCH TD SCH (08:40)
[2020-07-05] MEDS: lisINopril 10 MG (PRINIVIL) TABLET PO SCH (08:40)
[2020-07-05] MEDS: meTOprolol TARTRATE 25 MG (LOPRESSOR) TABLET PO SCH ×2 (08:40→19:33)
--- NOTE | 2020-07-05 08:41 | Progress Note ---
Subjective Subjective Date Seen by Provider: Jul 05, 2020 Time Seen by Provider: 08:15 Denies overnight events. He denies any chest pain. No complaints this AM. He said he is trying to sleep as much as he can to get rested up. Review of Systems General: No Chills, No Night Sweats HEENT: No Head Aches, No Visual Changes Pulmonary: No Dyspnea; Cough Cardiovascular: No: Chest Pain, Palpitations Gastrointestinal: No: Nausea, Vomiting, Abdominal Pain Genitourinary: No Dysuria Neurological: No: Weakness Objective Exam Vital Signs Vital Signs Date Time Temp Pulse Resp B/P (MAP) Pulse Ox O2 Delivery O2 Flow Rate FiO2 07/05/20 07:52 36.6 69 20 140/77 96 Room Air 07/05/20 07:50 Room Air 07/05/20 07:00 66 07/05/20 04:03 36.8 71 16 134/72 95 Room Air 07/05/20 01:00 73 07/04/20 23:20 37.1 68 16 128/77 96 Room Air 07/04/20 19:56 36.8 73 18 146/87 97 Room Air 07/04/20 19:35 Room Air 07/04/20 19:00 72 07/04/20 16:00 36.6 73 18 160/89 95 Nasal Cannula 3.00 07/04/20 12:43 79 07/04/20 12:20 37.1 78 19 159/92 94 Nasal Cannula I & O 07/05/20 07:00 Intake Total 1100 ml Output Total 550 ml Balance 550 ml General Appearance: No Apparent Distress (unkempt) HEENT: PERRL/EOMI (dysconjugate gaze) Neck: Non Tender, Supple Respiratory: Chest Non Tender, Lungs Clear, Normal Breath Sounds, No Accessory Muscle Use, No Respiratory Distress Cardiovascular: Regular Rate, Rhythm, No Edema Gastrointestinal: Non Tender, Soft Rectal: Deferred Back: Normal Inspection Extremity: Non Tender, No Calf Tenderness Neurologic/Psychiatric: Alert, Oriented x3 Skin: Warm/Dry Assessment/Plan Assessment/Plan Admission Dx NSTEMI Chest pain Assessment and Plan 07/03/20 NSTEMI Coronary artery disease - s/p PCI first diagonal artery stenosis with drug- eluting stent- RCA/LAD -moderate disease. now on aspirin Brilinta. Dilated cardiomyopathy Chronic systolic congestive heart failure- started on ACEI, beta layla. LVEF ~25% 07/04/20- continue to monitor- medication management- awaiting life vest. 07/05/20- no new chest pain- continue to monitor- Dispo: case management working on life vest- recommend smoking cessation and lifestyle modifications. Problems: (1) Chronic systolic congestive heart failure (2) Dilated cardiomyopathy (3) Amphetamine abuse (4) Chest pain Qualifiers: Qualified Codes: R07.9 - Chest pain, unspecified (5) Elevated troponin Admission Dx NSTEMI Chest pain Clinical Quality Measures Admission Status Admission Dx NSTEMI Chest pain AMI/AHF: ASA po Prior to arrival: No DVT/VTE Risk/Contraindication: Risk Factor Score Per Nursin RFS Level Per Nursing on Admit: 4+=Very High ARIEL LANZA MD Jul 05, 2020 08:41
--- NOTE | 2020-07-05 12:58 | Cardiology Progress Note ---
Cardiology SOAP Progress Note Subjective: No cardiac complaints. Objective: I&O/Vital Signs 07/05/20 07/05/20 07/05/20 07/05/20 01:00 04:03 07:00 07:50 Temp 36.8 Pulse 73 71 66 Resp 16 B/P (MAP) 134/72 Pulse Ox 95 O2 Delivery Room Air Room Air 07/05/20 07/05/20 07/05/20 07:52 11:32 12:16 Temp 36.6 36.6 Pulse 69 66 67 Resp 20 18 B/P (MAP) 140/77 153/87 Pulse Ox 96 97 O2 Delivery Room Air Room Air 07/05/20 00:00 Intake Total 700 ml Output Total 200 ml Balance 500 ml Constitutional: appears stated age, AAO x 3; No apparent distress; well- developed, well-nourished Respiratory: chest is bilaterally symmetric, lungs clear to auscultation Cardiovascular: regular rate-rhythm, S1 and S2; No diastolic murmur, No systolic murmur Gastrointestional: soft, audible bowel sounds; No spleenomegaly Extremities: normal range of motion, non-tender, normal inspection; No clubbing, No cyanosis; no lower extremity edema bilateral; No significant edema Neurologic/Psychiatric: no motor/sensory deficits, alert, normal mood/affect, oriented x 3, power is 5/5 both on sides Skin: normal color, warm/dry; No rash, No ulcerations A/P: Assessment/Dx: non-STEMI, Nonischemic dilated cardiomyopathy, active smoking Plan: non-STEMI, aspirin, Brilinta. coronary angiography showed severe first diagonal artery stenosis treated successfully with a drug-eluting stent. Moderate disease in the RCA and LAD as well. Aggressive secondary prevention measures. Smoking cessation was strongly recommended. echocardiogram showed dilated cardiomyopathy with an EF of 25 cent. I discussed at length with the patient and recommended LifeVest for primary prevention of sudden cardiac . The patient consents for a lifevest. We are awaiting the LifeVest. optimal medical therapy for cardiomyopathy started with SNEHAL inhibitor and beta layla. Patient can follow with Dr. Rosenbaum as an outpatient. Thank you for your consultation. Please call me if you have any questions. Yvonne Ortega MD, FACP, FACC, FSCAI, FHRS, CCDS Interventional Cardiology Cardiac Electrophysiology Vascular Medicine and Endovascular Interventions Clinical Quality Measures AMI/AHF: ASA po Prior to arrival: Karena Hall MD Jul 05, 2020 12:58
[2020-07-05] MEDS: MELATONIN 3 MG TABLET PO SCH (19:33)
[2020-07-06] MEDS: LORazepam 1 MG (ATIVAN) TAB PO PRN (00:42)
[2020-07-06] MEDS: ENOXAPARIN 40 MG/0.4 ML (LOVENOX) SYR SC SCH (05:22)
[2020-07-06] MEDS: KCL 20 MEQ TAB (K-DUR) PO SCH (05:22)
[2020-07-06] MEDS: CATHETER FLUSH 10 ML SYR IV SCH ×2 (05:23→08:57)
[2020-07-06] MEDS: NICOTINE 14 MG (NICODERM) PATCH TD SCH (08:57)
[2020-07-06] MEDS: ASPIRIN E.C. 81 MG (ECOTRIN) TAB PO SCH (08:58)
[2020-07-06] MEDS: NICOTINE PATCH REMOVAL TP SCH (08:58)
[2020-07-06] MEDS: TICAGRELOR 90 MG TABLET (BRILINTA) PO SCH (08:58)
[2020-07-06] MEDS: lisINopril 10 MG (PRINIVIL) TABLET PO SCH (08:58)
[2020-07-06] MEDS: meTOprolol TARTRATE 25 MG (LOPRESSOR) TABLET PO SCH (08:58)
--- NOTE | 2020-07-06 10:45 | NUR ---
CM/SS visited with patient for discharge planning. Plan: Patient will return home with life vest at time of discharge. CM/SS received call from the patient's primary care nurse Sally to check on status of life vest. CM/SS contacted [employer] ( ) and spoke with [employer]. They reported they received the application on Monday but did not have a weekend worker to process it. He stated if we want the process to move faster the patient can call the number and speak with someone in the "patient pay department". CM/SS provided the patient with the number. The patient is on phone. Awaiting delivery time. CM/SS will continue to follow.
--- NOTE | 2020-07-06 11:36 | NUR ---
PT HAS A FAMILY MEMBER WHO DOES HAVE THE PATIENTS PASSWORD WHO HAS CALLED THIS AUTO TRANSM[employer]ION MECHANIC X 5 TODAY. EACH TIME CALLER CALLS, SHE BECOMES MORE ANGRY AND RUDE AND AFTER LAST CALL, BEGAN USING PROFANITY. SHE STATES SHE IS ANGRY THAT WE "WILL NOT LET HER KNOW WHAT IS GOING ON". I HAVE EXPLAINED TO HER REPEATEDLY THAT WE ARE WAITING ON [employer] TO DETERMINE IF PT QUALIFIES FOR LIFE VEST. SHE IS ADAMANT THAT "YOU DO SOMETHING NOW BITCH". I SPOKE WITH PT AND ASKED HIM (HE IS ALERT AND ORIENTED AND HIS OWN POA), TO DISCUSS THE PLAN OF CARE WITH THIS CALLER AND TO LET HER KNOW THAT HE PERSONALLY SPOKE WITH [employer] THIS AM AND IS AWAITING DETERMINATION.
--- NOTE | 2020-07-06 12:43 | Cardiology Progress Note ---
Cardiology SOAP Progress Note Subjective: no cardiac complaints. Objective: I&O/Vital Signs 07/06/20 07/06/20 07/06/20 07/06/20 01:00 04:25 08:34 08:49 Temp 36.8 37.0 Pulse 63 64 68 Resp 20 20 B/P (MAP) 136/81 140/88 Pulse Ox 95 95 O2 Delivery Nasal Cannula Room Air Room Air 07/06/20 12:15 Pulse 60 Resp 18 B/P (MAP) 146/88 Pulse Ox 96 O2 Delivery Room Air 07/06/20 00:00 Intake Total 1000 ml Output Total 200 ml Balance 800 ml Constitutional: appears stated age, AAO x 3; No apparent distress; well- developed, well-nourished Respiratory: chest is bilaterally symmetric, lungs clear to auscultation Cardiovascular: regular rate-rhythm, S1 and S2; No diastolic murmur, No systoli c murmur Gastrointestional: soft, audible bowel sounds; No spleenomegaly Extremities: normal range of motion, non-tender, normal inspection; No clubbing, No cyanosis; no lower extremity edema bilateral; No significant edema Neurologic/Psychiatric: no motor/sensory deficits, alert, normal mood/affect, oriented x 3, power is 5/5 both on sides Skin: normal color, warm/dry; No rash, No ulcerations A/P: Assessment/Dx: non-STEMI, Nonischemic dilated cardiomyopathy, active smoking Plan: non-STEMI, aspirin, Brilinta. coronary angiography showed severe first diagonal artery stenosis treated successfully with a drug-eluting stent. Moderate disease in the RCA and LAD as well. Aggressive secondary prevention measures. Smoking cessation was strongly recommended. echocardiogram showed dilated cardiomyopathy with an EF of 25 cent. I discussed at length with the patient and recommended LifeVest for primary prevention of sudden cardiac . The patient consents for a lifevest. We are awaiting the LifeVest. optimal medical therapy for cardiomyopathy started with SNEHAL inhibitor and beta layla. Dr. Almendarez to take over cardiology care tomorrow. Thank you for your consultation. Please call me if you have any questions. Yvonne Ortega MD, FACP, FACC, FSCAI, FHRS, CCDS Interventional Cardiology Cardiac Electrophysiology Vascular Medicine and Endovascular Interventions Clinical Quality Measures AMI/AHF: ASA po Prior to arrival: Karena Hall MD Jul 06, 2020 12:43
--- NOTE | 2020-07-06 14:17 | NUR ---
Follow up. The patient reports that he just spoke with [employer] and they should be delivering the life vest to the hospital today. The patient reports that he is so thankful for the staff and service here at the hospital and the emergency room in [place]. He wanted this sw to tell the nurse and front desk supervisor sorry for the loved one who called and was rude to them. The patient lives at home alone but has good support from step daughter and friends. One of his friends offered to pay the 250 dollar deposit and it was arranged. No further needs.
[2020-07-06] MEDS ORDERED: METO-333 PO (17:54)
[2020-07-06] MEDS ORDERED: TICA90TA PO (17:54)
[2020-07-06] MEDS ORDERED: LISI10TA2 PO (17:54)
[2020-07-06] MEDS ORDERED: ASPI-1238 PO (17:54)
[2020-07-06] MEDS ORDERED: ATOR80TA76 PO (17:54)
--- NOTE | 2020-07-06 18:09 | Discharge Summary ---
Discharge Summary Hospital Course Was the Problem List Reviewed?: Yes Problems/Dx: (1) Chronic systolic congestive heart failure (2) Dilated cardiomyopathy (3) Amphetamine abuse (4) Chest pain Status: Acute Qualifiers: Qualified Codes: R07.9 - Chest pain, unspecified (5) Elevated troponin Status: Acute Hospital Course Date of Admission: Jul 02, 2020 at 15:20 Admission Diagnosis : Chest pain Qualifiers: Qualified Codes: R07.9 - Chest pain, unspecified NSTEMI Amphetamine abuse (5) Elevated troponin NSTEMI Family Physician/Provider: Mallika,Local Physician Date of Discharge: 07/06/20 Discharge Diagnosis: (1) Chronic systolic congestive heart failure (2) Dilated cardiomyopathy (3) Amphetamine abuse (4) Chest pain Qualifiers: Qualified Codes: R07.9 - Chest pain, unspecified (5) Elevated troponin NSTEMI Hospital Course: 65 yo M admitted for chest pain; he initially presented to [place] [facility]. Patient reports having chest pain that would come and go. He denies any history of cardiac issues. He is currently unemployed. 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 This summer was a hard time due to no income. Patient reports the only cardiac family history is his dad had heart attack in his 80s. Risk factors: smokes cigarettes daily, uses methamphetamine (last use 1 week ago he thinks). He denies frequent alcohol use, denies cocaine use. 07/03/20 NSTEMI Coronary artery disease - s/p PCI first diagonal artery stenosis with drug- eluting stent- RCA/LAD -moderate disease. now on aspirin Brilinta. Dilated cardiomyopathy Chronic systolic congestive heart failure- started on ACEI, beta layla. LVEF ~25% 07/04/20- continue to monitor- medication management- awaiting life vest. 07/05/20- no new chest pain- continue to monitor- Patient received a lifevest and was discharged to home. Labs and Pending Lab Test: Home Meds Active Aspirin EC (Aspirin) 81 Mg Tablet. 81 Mg PO DAILY Lisinopril 10 Mg Tablet 10 Mg PO DAILY@0900 Metoprolol Tartrate 25 Mg Tablet 75 Mg PO BID Atorvastatin Calcium 80 Mg Tablet 80 Mg PO HS Brilinta (Ticagrelor) 90 Mg Tablet 90 Mg PO BID Assessment/Pt Instructions -Continue to wear lifevest as instructed -follow up with Dr. Rosenbaum in outpatient setting in 1 week. -Will repeat echocardiogram (see Dr. Rosenbaum for date)- -continue medications that were sent to your pharmacy in [place]- as they could help improve your heart/cardiac function and not require a pacemaker at follow up. -Recommend smoking, alcohol, drug cessation. -Find a primary care doctor in [place] to follow your care. Discharge Planning: >30 minutes discharge planning Discharge Instructions Discharge Diet: Cardiac Diet Activity as Tolerated: Yes Pneumonia Vaccine Order Indica: Yes Discharge Physical Examination Vital Signs Vital Signs Date Time Temp Pulse Resp B/P (MAP) Pulse Ox O2 Delivery O2 Flow Rate FiO2 07/06/20 16:00 35.6 64 16 168/98 95 07/06/20 12:15 Room Air 07/04/20 16:00 3.00 General Appearance: No Apparent Distress, WD/WN HEENT: PERRL/EOMI Respiratory: Lungs Clear, Normal Breath Sounds, No Accessory Muscle Use Cardiovascular: Regular Rate, Rhythm, No Edema Gastrointestinal: Non Tender, Soft Extremity: Non Tender, No Calf Tenderness Skin: Warm/Dry Neurologic/Psychiatric: Alert, Oriented x3 Allergies: Coded Allergies: No Known Drug Allergies (Unverified , 07/02/20) Discharge Summary Date of Admission Jul 02, 2020 at 15:20 Date of Discharge Discharge Diagnosis (1) Chronic systolic congestive heart failure (2) Dilated cardiomyopathy (3) Amphetamine abuse (4) Chest pain Status: Acute Qualifiers: Qualified Codes: R07.9 - Chest pain, unspecified (5) Elevated troponin Status: Acute Clinical Quality Measures AMI/AHF: ASA po Prior to arrival: No DVT/VTE Risk/Contraindication: Risk Factor Score Per Nursin RFS Level Per Nursing on Admit: 4+=Very High ARIEL LANZA MD Jul 06, 2020 18:08
--- NOTE | 2020-07-06 18:47 | NUR ---
ZOLL REP HERE AND LIFE VEST ON. RX AND INST REVIEWED WITH PT ALONG WITH NEED FOR F/U. F/U PHONE NUMBERS GIVEN TO PT FOR CARDIOLOGY AND FAMILY PRACTICE. PT ENCOURAGED TO CALL TOMORROW TO GET F/U APPTS INITIATED. VERBALIZED UNDERSTANDING OF DC INSTRUCTIONS. AWAITING RIDE. TELEMETRY AND HL REMOVED.
--- NOTE | 2020-07-06 19:07 | NUR ---
DC'D PER WC TO FRONT DOOR. FAMILY CALLED AND STATES THEY ARE HERE.
--- NOTE | 2020-07-07 14:24 | Physician Query Clarification ---
PQ-CHF Specificity Admission Date: Jul 02, 2020 at 15:20 Discharge Date: Jul 06, 2020 at 19:08 Dr. Ortega, The medical record reflects the following clinical scenario: History/Risk Factors: NSTEMI, dilated cardiomyopathy, CAD, cigarette smoker Clinical Findings: ProBNP - 1348.0 Treatment: Lasix 40 mg IVP Question: Can you further specify the acuity &/or type of CHF per the clinical indicators above? Please document a response in the Progress Notes or Discharge Summary. 1. Acuity: Acute, Chronic or Acute on Chronic 2. Type: Systolic, Diastolic or Systolic & Diastolic 3. Unspecified: CHF cannot be further specified regarding type or acuity 4. Other, with explanation of clinical findings 5. Clinically undetermined, no explanation for clinical findings PHYSICIAN RESPONSE Acuity: Acute Type: Systolic Please remember a lack of response to the above will prompt a phone page by CDI/Coding staff. In responding to this query, please exercise your independent professional judgment. The purpose of this communication is to more accurately reflect the complexity of your patients condition. The fact that a question is asked does not imply that any particular answer is desired or expected. Thank you for your timely response to this clarification. Requestors name: Luan THIS PHYSICIAN QUERY FORM IS A PERMANENT PART OF THE MEDICAL RECORD LUAN CAMARENA Jul 07, 2020 14:24 Karena ORTEGA MD Jul 14, 2020 13:42
== END 2020-07-06 19:08 | disposition home or self-care (01) | DRG 246 ==
LOC: ER FS 10:22 → CSD 12:00 → UNDOADMOB 12:00 → CSD 12:00 → ER FS 13:04 → INTOOBSV 15:20 → OBSVTOIN 15:20 → CSD 07-03 18:23 → 4TH 07-03 18:23 → UNDODISIN 07-06 19:08
PROVIDERS: ADMIT Family Medicine; ATTEND Family Medicine
PROC: 027034Z Dilation of Coronary Artery, One Artery with Drug-eluting Intraluminal Device, Percutaneous Approach (ICD-10-PCS; principal; 2020-07-02)
PROC: 4A023N7 Measurement of Cardiac Sampling and Pressure, Left Heart, Percutaneous Approach (ICD-10-PCS; 2020-07-02)
PROC: B2111ZZ Fluoroscopy of Multiple Coronary Arteries using Low Osmolar Contrast (ICD-10-PCS; 2020-07-02)
PROC: B2151ZZ Fluoroscopy of Left Heart using Low Osmolar Contrast (ICD-10-PCS; 2020-07-02)
DX: I21.4 Non-ST elevation (NSTEMI) myocardial infarction (principal); I50.23 Acute on chronic systolic (congestive) heart failure; I42.0 Dilated cardiomyopathy; I25.10 Atherosclerotic heart disease of native coronary artery without angina pectoris; F17.210 Nicotine dependence, cigarettes, uncomplicated; F15.10 Other stimulant abuse, uncomplicated
CPT/HCPCS: 36415; 71045; 80048; 80053; 83735; 83880; 84484; 85025; 85027; 85347; 85610; 85730; 93005; 93041; 93306; 93458

== ENCOUNTER → 2020-08-05 | Outpatient (CLI) | payer SELFPAY ==
[~2020-08-05] MED LIST: ASPI-1238 PO; ATOR80TA76 PO; LISI10TA2 PO; METO-333 PO; TICA90TA PO
== END ==
LOC: CARD 13:00
PROVIDERS: ATTEND Internal Medicine Cardiovascular Disease
DX: I08.0 Rheumatic disorders of both mitral and aortic valves (principal); I25.5 Ischemic cardiomyopathy
CPT/HCPCS: 93306

== ENCOUNTER 2022-10-08 13:11 | Observation (INO) | payer MEDICARE, MEDICAID ==
[~2022-10-08] VITALS: Ht 182.8 cm; Wt 81.3 kg
[~2022-10-08 13:11] MED LIST changes: -LISI10TA2 PO; +LISI10TA25 PO
[2022-10-08] MEDS ORDERED: cloNIDine 0.2 MG (CATAPRES) TAB PO ONE ×2 (13:30→15:00)
[2022-10-08 13:33] LABS: BASOPHILS # (AUTO) 0.1 10^3/uL (0.0-0.1); BASOPHILS % (AUTO) 1 % (0-10); EOSINOPHILS # (AUTO) 0.4 10^3/uL (0.0-0.3); EOSINOPHILS % (AUTO) 5 % (0-10); HEMATOCRIT 40 % (40-54); HEMOGLOBIN 13.2 g/dL (13.3-17.7); LYMPHOCYTES # (AUTO) 2.2 10^3/uL (1.0-4.0); LYMPHOCYTES % (AUTO) 27 % (12-44); MEAN CORPUSCULAR HEMOGLOBIN 26 pg (25-34); MEAN CORPUSCULAR HGB CONC 33 g/dL (32-36); MEAN CORPUSCULAR VOLUME 80 fL (80-99); MEAN PLATELET VOLUME 10.3 fL (9.0-12.2); MONOCYTES # (AUTO) 0.6 10^3/uL (0.0-1.0); MONOCYTES % (AUTO) 7 % (0-12); NEUTROPHILS % (AUTO) 60 % (42-75); PLATELET COUNT 246 10^3/uL (130-400); WHITE BLOOD COUNT 8.3 10^3/uL (4.3-11.0)
--- NOTE | 2022-10-08 13:45 | Diagnostic Imaging Report ---
EXAMINATION: Chest radiograph TECHNIQUE: Portable upright view of the chest is obtained. HISTORY: Chest pain COMPARISON: Chest radiograph 07/02/2020 FINDINGS: Increased size of nodular opacity within the right upper lobe. Low lung volume. No new airspace opacities. Cardiac silhouette and pulmonary vascularity are within normal limits. IMPRESSION: Increased nodular opacity within the right upper lobe could represent progressive scarring, although a pulmonary nodule or mass cannot be excluded. Could consider a CT of the chest for further evaluation. Dictated by: Dictated on workstation # [id number]
[2022-10-08 13:46] LABS: ALANINE AMINOTRANSFERASE 29 U/L (0-55); ALKALINE PHOSPHATASE 126 U/L (40-136); BILIRUBIN,TOTAL 0.3 MG/DL (0.1-1.0); BUN/CREATININE RATIO 19; CALCIUM 9.2 MG/DL (8.5-10.1); CARBON DIOXIDE 22 MMOL/L (21-32); CHLORIDE 101 MMOL/L (98-107); GFR ESTIMATED 95; GLUCOSE 127 MG/DL (70-105); POTASSIUM 3.4 MMOL/L (3.6-5.0); SODIUM 136 MMOL/L (135-145)
[2022-10-08 13:47] LABS: ALBUMIN 3.8 GM/DL (3.2-4.5); TOTAL PROTEIN 7.2 GM/DL (6.4-8.2)
--- NOTE | 2022-10-08 16:27 | ED General ---
General Chief Complaint: General Problems/Pain Stated Complaint: SWEATING, NAUSEA Source of Information: Patient Exam Limitations: No Limitations History of Present Illness Date Seen by Provider: Oct 08, 2022 Time Seen by Provider: 14:20 Initial Comments Patient is a 67-year-old male with history of hypertension and CAD who presents with generalized weakness shortness of breath and sweats upon waking 2 hours prior to ED arrival. Patient denies chest pain palpitations cough, sore throat, leg pain or swelling. Denies dizziness, headache or urinary frequency urgency or dysuria. No other acute symptoms or complaints. Of note, patient has been noncompliant with all medications over a year. He currently smokes 1 pack/day. Timing/Duration: 1-3 Hours Severity: Moderate Associated Systoms: Other Allergies and Home Medications Allergies Coded Allergies: No Known Drug Allergies (Unverified , 07/02/20) Patient Home Medication List Home Medication List Reviewed: Yes Aspirin (Aspirin EC) 81 Mg Tablet.dr, 81 MG PO DAILY Prescribed by: ARIEL LANZA on 07/06/201753 Atorvastatin Calcium (Atorvastatin Calcium) 80 Mg Tablet, 80 MG PO HS Prescribed by: ARIEL LANZA on 07/06/20 175 Lisinopril (Lisinopril) 10 Mg Tablet, 10 MG PO DAILY@0900 Prescribed by: ARIEL LANZA on 07/06/201753 Metoprolol Tartrate (Metoprolol Tartrate) 25 Mg Tablet, 75 MG PO BID Prescribed by: ARIEL LANZA on 07/06/201753 Ticagrelor (Brilinta) 90 Mg Tablet, 90 MG PO BID Prescribed by: ARIEL LANZA on 07/06/201753 Review of Systems Review of Systems Constitutional: see HPI EENTM: see HPI Respiratory: see HPI Cardiovascular: see HPI Gastrointestinal: see HPI Genitourinary: see HPI Musculoskeletal: see HPI Skin: see HPI Psychiatric/Neurological: See HPI Hematologic/Lymphatic: See HPI Immunological/Allergic: see HPI All Other Systems Reviewed Negative Unless Noted: No Past Hxlntwq-Xaftvv-Nfajfm Hx Patient Social History Tobacco Use?: Yes Tobacco type used: Cigarettes Smoking Status: Current Everyday Smoker Use of E-Cig and/or Vaping dev: No Substance use?: No Alcohol Use?: No Seasonal Allergies Seasonal Allergies: No Past Medical History Surgeries: No Respiratory: Yes COPD Currently Using CPAP: No Currently Using BIPAP: No Cardiac: No Neurological: No Genitourinary: No Gastrointestinal: No Musculoskeletal: No Endocrine: No HEENT: No Cancer: No Psychosocial: No Integumentary: No Blood Disorders: No Physical Exam Vital Signs Vital Signs - First Documented 10/08/22 13:22 Temp 35.8 Pulse 84 Resp 16 B/P (MAP) 182/102 (128) Pulse Ox 98 O2 Delivery Room Air Capillary Refill : Less Than 3 Seconds Height, Weight, BMI Height: '" Weight: lbs. oz. kg; 23.00 BMI Method: General Appearance: No Apparent Distress, WD/WN Eyes: Bilateral Eye Normal Inspection, Bilateral Eye PERRL, Bilateral Eye EOMI HEENT: PERRL/EOMI Neck: Full Range of Motion, Normal Inspection Respiratory: Chest Non Tender, Normal Breath Sounds, Decreased Breath Sounds Cardiovascular: Regular Rate, Rhythm, No Edema Gastrointestinal: Non Tender, Soft Back: Normal Inspection, No CVA Tenderness Extremity: Non Tender, No Calf Tenderness Neurologic/Psychiatric: Alert, Oriented x3 Skin: Normal Color Focused Exam Sepsis Stage: Ruled Out Progress/Results/Core Measures Suspected Sepsis SIRS Temperature: Pulse: 84 Respiratory Rate: 16 Laboratory Tests 10/08/22 13:29: White Blood Count 8.3 Blood Pressure 182 /102 Mean: 128 Laboratory Tests 10/08/22 13:29: Creatinine 0.90, Platelet Count 246, Total Bilirubin 0.3 Results/Orders Lab Results Laboratory Tests Test 10/08/22 13:29 Range/Units White Blood Count 8.3 4.3-11.0 10^3/uL Red Blood Count 5.08 4.30-5.52 10^6/uL Hemoglobin 13.2 L 13.3-17.7 g/dL Hematocrit 40 40-54 % Mean Corpuscular Volume 80 80-99 fL Mean Corpuscular Hemoglobin 26 25-34 pg Mean Corpuscular Hemoglobin Concent 33 32-36 g/dL Red Cell Distribution Width 14.5 10.0-14.5 % Platelet Count 246 130-400 10^3/uL Mean Platelet Volume 10.3 9.0-12.2 fL Immature Granulocyte % (Auto) 0 % Neutrophils (%) (Auto) 60 42-75 % Lymphocytes (%) (Auto) 27 12-44 % Monocytes (%) (Auto) 7 0-12 % Eosinophils (%) (Auto) 5 0-10 % Basophils (%) (Auto) 1 0-10 % Neutrophils # (Auto) 5.0 1.8-7.8 10^3/uL Lymphocytes # (Auto) 2.2 1.0-4.0 10^3/uL Monocytes # (Auto) 0.6 0.0-1.0 10^3/uL Eosinophils # (Auto) 0.4 H 0.0-0.3 10^3/uL Basophils # (Auto) 0.1 0.0-0.1 10^3/uL Immature Granulocyte # (Auto) 0.0 0.0-0.1 10^3/uL Sodium Level 136 135-145 MMOL/L Potassium Level 3.4 L 3.6-5.0 MMOL/L Chloride Level 101 98-107 MMOL/L Carbon Dioxide Level 22 21-32 MMOL/L Anion Gap 13 5-14 MMOL/L Blood Urea Nitrogen 17 7-18 MG/DL Creatinine 0.90 0.60-1.30 MG/DL Estimat Glomerular Filtration Rate 95 BUN/Creatinine Ratio 19 Glucose Level 127 H 70-105 MG/DL Calcium Level 9.2 8.5-10.1 MG/DL Corrected Calcium 9.4 8.5-10.1 MG/DL Total Bilirubin 0.3 0.1-1.0 MG/DL Aspartate Amino Transf (AST/SGOT) 21 5-34 U/L Alanine Aminotransferase (ALT/SGPT) 29 0-55 U/L Alkaline Phosphatase 126 40-136 U/L Troponin I < 0.30 <0.30 NG/ML Pro-B-Type Natriuretic Peptide 54.8 <125.0 PG/ML Total Protein 7.2 6.4-8.2 GM/DL Albumin 3.8 3.2-4.5 GM/DL My Orders Orders - ALESSIO NAVARRETE DO Cbc With Automated Diff (10/08/22 13:16) Comprehensive Metabolic Panel (10/08/22 13:16) Troponin I Fs (10/08/22 13:16) Chest 1 View Ap/Pa Only (10/08/22 13:16) Ekg Tracing (10/08/22 13:16) Probnp Fs (10/08/22 13:16) Clonidine Tablet (Catapres Tablet) (10/08/22 13:30) Ct Angio Chest W (R/O Pe) (10/08/22 14:57) Clonidine Tablet (Catapres Tablet) (10/08/22 15:00) Ct Angio Chest W (R/O Pe) (10/08/22 ) Nicotine Patch (Nicoderm Patch) (10/08/22 17:45) Ed Admission (Communication) (10/08/22 17:39) Medications Given in ED Current Medications Medications Dose Ordered Sig/Ceferino Route Start Time Stop Time Status Last Admin Dose Admin Clonidine HCl 0.2 mg ONCE ONCE PO 10/08/22 13:30 10/08/22 13:31 DC 10/08/22 13:33 0.2 MG Clonidine HCl 0.2 mg ONCE ONCE PO 10/08/22 15:00 10/08/22 15:01 DC 10/08/22 15:08 0.2 MG Vital Signs/I&O 10/08/22 13:22 Temp 35.8 Pulse 84 Resp 16 B/P (MAP) 182/102 (128) Pulse Ox 98 O2 Delivery Room Air Capillary Refill : Less Than 3 Seconds Blood Pressure Mean: 128 Departure Communication (Admissions) Chest x-ray: No acute cardiopulmonary disease, large pulmonary nodule found concerning for potential malignancy per radiology report CTA chest: No acute findings EKG: No acute findings per radiology report Patient with shortness of breath weakness and sweats prior to ED arrival. Patie nt hypertensive on ED arrival. Blood pressure treated with improvement. EKG, troponin nonacute. CT chest concerning for possible malignancy. CT angio negative for acute disease or present malignancy. Dr. Deluca agrees to admit. Impression Primary Impression: Accelerated hypertension Additional Impression: Dyspnea Disposition: 09 ADMITTED INPATIENT Condition: Stable Admissions Decision to Admit Reason: Admit from ER (General) Decision to Admit/Date: Oct 08, 2022 Time/Decision to Admit Time: 17:30 Departure-Patient Inst. Decision time for Depature: 17:42 Referrals: NO,LOCAL PHYSICIAN (PCP/Family) Primary Care Physician ALESSIO NAVARRETE DO Oct 08, 2022 16:27
--- NOTE | 2022-10-08 16:42 | Diagnostic Imaging Report ---
TECHNIQUE: CTA of the chest was performed with contrast bolus timing optimized for evaluation of the pulmonary arteries. 3D reformats were obtained and reviewed. Dose reduction techniques were utilized. REASON FOR EXAM: Chest pain. COMPARISON: Chest radiograph performed earlier the same date. FINDINGS: This helical CT pulmonary angiogram is diagnostic to the subsegmental level branches of the pulmonary artery and demonstrates no pulmonary emboli. The heart and great vessels are unremarkable. There is no pericardial effusion. Prominent mediastinal lymph nodes are present. Centrilobular emphysema is seen throughout the lungs, greatest in the apices. Small amount of subsegmental atelectasis is seen in the right lung base. No focal consolidation or mass. Small nodule is seen in the left lung base measuring 0.5 cm. No central endobronchial obstructing lesion. No pleural effusion or pneumothorax. Osseous structures appear normal. Limited views of the upper abdomen are unremarkable. IMPRESSION: 1. No acute pulmonary embolus. 2. Centrilobular emphysema throughout the lungs, greatest in the apices. 3. Nodule in the left lung base measuring 0.5 cm. Recommend follow-up in 6-12 months to ensure stability. 4. Nonspecific prominent mediastinal lymph nodes, likely reactive. Recommend attention on follow-up. Dictated by: Dictated on workstation # [id number]
[2022-10-08] MEDS ORDERED: NICOTINE 21 MG (NICODERM) PATCH TD ONE (17:45)
[2022-10-09] MEDS ORDERED: ONDANSETRON 4 MG (ZOFRAN) ORAL DISSOLVE TAB PO PRN (08:15)
[2022-10-09] MEDS ORDERED: ONDANSETRON 4 MG/2 ML (SDV) Z0FRAN IV PRN (08:15)
[2022-10-09] MEDS ORDERED: polyethylene glycoL POWDER 17 GM (MIRALAX) PACK PO PRN (08:15)
[2022-10-09] MEDS ORDERED: diphenhydrAMINE 50 MG/ML INJ (BENADRYL) IVP PRN (08:15)
[2022-10-09] MEDS ORDERED: diphenhydrAMINE 25 MG TAB (BENADRYL) PO PRN (08:15)
[2022-10-09] MEDS ORDERED: NALOXONE 0.4 MG/ML 1 ML (NARCAN) VIAL IV PRN (08:15)
[2022-10-09] MEDS ORDERED: morphine INJ 4 MG/ML 1 ML (VIAL/SYRINGE) IV PRN (08:15)
[2022-10-09] MEDS ORDERED: ACETAMINOPHEN 325 MG TABLET PO PRN (08:15)
[2022-10-09] MEDS ORDERED: PATIENT MAY USE OWN MEDS, ALL PO SCH (08:15)
[2022-10-09] MEDS ORDERED: ANTACID SUSP 30 ML UDC (MYLANTA) PO PRN (08:15)
[2022-10-09] MEDS ORDERED: cloNIDine 0.2 MG (CATAPRES) TAB PO PRN (08:15)
[2022-10-09] MEDS ORDERED: NITROGLYCERIN 0.4 MG SL TABS BTL 25'S SL PRN (08:15)
[2022-10-09] MEDS ORDERED: MELATONIN 3 MG TABLET PO PRN (08:15)
[2022-10-09] MEDS ORDERED: BISACODYL 10 MG SUPP (DULCOLAX) PR PRN (08:15)
[2022-10-09] MEDS ORDERED: ENOXAPARIN 100 MG/1 ML (LOVENOX) SYR SC SCH (08:15)
[2022-10-09 08:27] VITALS: BP 179/94
[2022-10-09] MEDS: ENOXAPARIN 80 MG/0.8 ML (LOVENOX) SYR SC SCH ×3 (09:56→20:25)
[2022-10-09] MEDS: DOCUSATE SODIUM 100 MG (COLACE) CAP PO SCH ×2 (09:56→20:24)
[2022-10-09] MEDS: ASPIRIN 81 MG CHEW (CHILDREN'S ASA) PO SCH (09:56)
[2022-10-09 10:38] VITALS: BP 179/94
[2022-10-09] MEDS ORDERED: RT-ALBUTEROL SULF 2.5 MG/3 ML PRE-MIX VIAL INH PRN (10:45)
[2022-10-09 11:41] VITALS: BP 133/82
--- NOTE | 2022-10-09 12:58 | History & Physical-Hospitalist ---
History of Present Illness HPI/Chief Complaint CC: CP HPI: This is a 67yoWM clinic patient of [facility] who has a h/o CAD non-compliant with meds who presented to ER with CP and in need of risk factor stratification. He denies CP currently.Very apathetic. Source: patient Exam Limitations: no limitations Date Seen 10/09/22 Time Seen by a Provider: 12:00 Attending Physician José Antonio Marie MD PCP Admitting Physician: Brittney Deluca DO Attending Physician: Brittney Deluca DO Referring Physician Date of Admission Oct 09, 2022 at 08:05 Home Medications & Allergies Home Medications Reviewed patient Home Medication Reconciliation performed by pharmacy medication reconciliations refrigerator repair technician and/or nursing. Patients Allergies have been reviewed. Allergies Allergies Coded Allergies No Known Drug Allergies (Grsjyzcmos74/19/20) Past Vfydezk-Xkuzlx-Dgpbbe Hx Patient Social History Marrital Status: single Employed/Student: retired Tobacco Use?: Yes Tobacco type used: Cigarettes Smoking Status: Current Everyday Smoker Use of E-Cig and/or Vaping dev: No Substance use?: No Alcohol Use?: No Pt feels they are or have been: No Immunizations Up To Date Tetanus Booster (TDap): Unknown Seasonal Allergies Seasonal Allergies: No Current Status Advance Directives: No Communicates: Verbally Primary Language: [place] Citizen Preferred Spoken Language: [place] Citizen Is interpretation needed?: No Sensory deficits: Vision impairment Implanted or Applied Medical D: Stents Past Medical History Surgeries: Coronary Stent COPD Currently Using CPAP: No Currently Using BIPAP: No Blood Disorders: No Review of Systems Constitutional: see HPI Cardiovascular: chest pain Physical Exam Physical Exam Vital Signs Vital Signs - First Documented 10/08/22 10/09/22 13:22 10:38 Temp 35.8 Pulse 84 Resp 16 B/P (MAP) 182/102 (128) Pulse Ox 98 O2 Delivery Room Air FiO2 21 Capillary Refill : Less Than 3 Seconds Height, Weight, BMI Height: '" Weight: lbs. oz. kg; 24.32 BMI Method: General Appearance: No Apparent Distress, Chronically ill Eyes: Right Eye Normal Inspection, Right Eye PERRL HEENT: PERRL/EOMI, Normal ENT Inspection, Pharynx Normal, Moist Mucous Membranes Neck: Full Range of Motion, Normal Inspection, Non Tender Respiratory: Chest Non Tender, Lungs Clear, Normal Breath Sounds, No Accessory Muscle Use, No Respiratory Distress Cardiovascular: Regular Rate, Rhythm, No Edema, No Gallop, No JVD, No Murmur, Normal Peripheral Pulses Gastrointestinal: Normal Bowel Sounds, No Organomegaly, No Pulsatile Mass, Non Tender, Soft Back: Normal Inspection, No CVA Tenderness, No Vertebral Tenderness Extremity: Normal Capillary Refill, Normal Inspection, Normal Range of Motion, Non Tender, No Calf Tenderness, No Pedal Edema Neurologic/Psychiatric: Alert, Oriented x3, No Motor/Sensory Deficits, Normal Mood/Affect Skin: Normal Color, Warm/Dry Lymphatic: No Adenopathy Results Results/Procedures Labs Laboratory Tests 10/08/22 13:29 Patient resulted labs reviewed. Assessment/Plan Admission Diagnosis Assessment: Chest pain h/o stents CAD Smoker Non-compliance Plan: Cardiology consult Admission Status: Observation Clinical Quality Measures AMI/AHF: ASA po Prior to arrival: Yes (324 MG) BRITTNEY DELUCA DO Oct 09, 2022 12:58
--- NOTE | 2022-10-09 15:23 | Consultation-Cardiology ---
HPI-Cardiology Cardiology Consultation: Date of Consultation 10/09/22 Time Seen by a Provider: 14:00 Date of Admission Attending Physician José Antonio Marie MD Admitting Physician Admitting Physician: Brittney Deluca DO Attending Physician: Brittney Deluca DO Consulting Physician ESTER ALBERT MD, MA, FACP, FACC, FSCAI, CCDS Physician requesting consult: Dr Deluca HPI: Chief Complaint: Reason for Card consult: H/o CAD 67 yo man who was admitted to Dr Deluca on 10/08/22 after he had presented to the ER with an episode of dizziness and diaphoresis and nausea and some shortness of breath that last about an hour and resolved w/o recurrence. No cp or palp or syncope. No swelling. No vomiting or diarrhea. No focal weakness. Review of Systems-Cardiology Review of Systems Constitutional: lightheadedness; No weight loss, No weight gain Eyes: No vision change Ears/Nose/Throat: No ear discharge, No nasal drainage, No recent hearing loss Respiratory: As described under HPI Cardiovascular: As described under HPI Gastrointestinal: As described under HPI Genitourinary: No dysuria, No hematuria Musculoskeletal: back pain (chronic) Skin: No rash, No ulcerations Psychiatric/Neurological: No focal weakness, No syncope Hematologic: No bleeding abnormalities All Other Systems Reviewed Negative Unless Noted: No FLX-Hybvnl-Ifnkpg Hx Patient Social History Smoking Status: Current Everyday Smoker Have you traveled recently?: No Alcohol Use?: No Pt feels they are or have been: No Tobacco type used: Cigarettes Past Medical History PMH As described under Assessment. Family Medical History Family Medical History: He does not report fam h/o early CAD or SCD Allergies and Home Medications Allergies Coded Allergies: No Known Drug Allergies (Unverified , 07/02/20) Patient Home Medication List Home Medication List Reviewed: Yes Aspirin (Aspirin EC) 81 Mg Tablet.dr, 81 MG PO DAILY Prescribed by: ARIEL LANZA on 07/06/201753 Atorvastatin Calcium (Atorvastatin Calcium) 80 Mg Tablet, 80 MG PO HS Prescribed by: ARIEL LANZA on 07/06/201753 Lisinopril (Lisinopril) 10 Mg Tablet, 10 MG PO DAILY@0900 Prescribed by: ARIEL LANZA on 07/06/201753 Metoprolol Tartrate (Metoprolol Tartrate) 25 Mg Tablet, 75 MG PO BID Prescribed by: ARIEL LANZA on 07/06/201753 Ticagrelor (Brilinta) 90 Mg Tablet, 90 MG PO BID Prescribed by: ARIEL LANZA on 07/06/201753 Physical Exam-Cardiology Physical Exam Vital Signs/I&O 10/09/22 10/09/22 10/09/22 10/09/22 07:31 08:27 08:48 10:27 Temp 36.3 Pulse 90 86 82 Resp 16 16 B/P (MAP) 155/84 179/94 (122) Pulse Ox 96 97 O2 Delivery Room Air Room Air Room Air 10/09/22 10/09/22 10/09/22 10:38 11:41 12:40 Temp 36.3 36.8 Pulse 82 79 78 Resp 18 B/P (MAP) 133/82 (99) Pulse Ox 97 96 O2 Delivery Room Air FiO2 21 Capillary Refill : Less Than 3 Seconds Constitutional: AAO x 3, well-developed, well-nourished HEENT: PERRL, EOMI; No xanthelasmas are seen Neck: carotid pulses are 2 + bilaterally, with good upstrokes Respiratory: No accessory muscle use; chest expansion is symmetric, chest is bilaterally symmetric, other (generally diminished air entry and prolonged exp phasee) Cardiovascular: regular rate-rhythm, S1 and S2, systolic murmur (soft HEIDI at card base) Gastrointestinal: No tender; soft; No guarding, No rebound; audible bowel sounds Extremities: No clubbing, No cyanosis, No significant edema Neurologic/Psychiatric: oriented x 3, other (moves all limbs equally) Skin: No rash, No ulcerations Data Review Labs Laboratory Tests 10/08/22 13:29 A/P-Cardiology Assessment/Admission Diagnosis Dizziness and shortness of breath of undetermined etiology CAD - h/o NSTEMI on Jul 02, 2020 treated with PCI: s/p Resolute Cali 2.0 x 15 mm drug-eluting stent to the first diag. Mild to mod dz of the RCA. Mild dz LAD H/o transient ICM - Echocardiogram of Jul 02, [address] Ortega showed LVEF 25-30%. Grade 1 diastolic dysfunction. PASP 20-25 mmHg - Echocardiogram of Aug 05, 2020 showed LVEF 50-55%. Mild MR. Mild AoR. PASP 20 mmHg Hypertension Tobaccoism HLD - statin tx Discussion and Recomendations * Continue DAPT, bb, statin * Echo * MPI * Advised to quit smoking immediately and completely * Monitor labs Clinical Quality Measures AMI/AHF: ASA po Prior to arrival: Yes (324 MG) ESTER ALBERT MD FACP FAC CCDS Oct 09, 2022 15:23
[2022-10-09] MEDS ORDERED: REGADENOSON 0.4 MG/5 ML SYR (LEXISCAN) IV ONE (15:30)
[2022-10-09] MEDS ORDERED: CLOPIDOGREL 75 MG (PLAVIX) TABLET PO NR (15:45)
[2022-10-09 16:00] VITALS: BP 136/71
[2022-10-09 19:40] VITALS: BP 148/87
[2022-10-09] MEDS: RT-ALBUTEROL SULF 2.5 MG/3 ML PRE-MIX VIAL INH SCH (21:29)
[2022-10-09 23:30] VITALS: BP 156/91
[2022-10-10] VITALS (7 sets, daily range): BP systolic 130–181; BP diastolic 74–101
[2022-10-10 05:29] LABS: BASOPHILS # (AUTO) 0.1 10^3/uL (0.0-0.1); BASOPHILS % (AUTO) 1 % (0-10); EOSINOPHILS # (AUTO) 0.3 10^3/uL (0.0-0.3); EOSINOPHILS % (AUTO) 5 % (0-10); HEMATOCRIT 40 % (40-54); HEMOGLOBIN 12.8 g/dL (13.3-17.7); LYMPHOCYTES # (AUTO) 1.6 10^3/uL (1.0-4.0); LYMPHOCYTES % (AUTO) 29 % (12-44); MEAN CORPUSCULAR HEMOGLOBIN 26 pg (25-34); MEAN CORPUSCULAR HGB CONC 32 g/dL (32-36); MEAN CORPUSCULAR VOLUME 80 fL (80-99); MEAN PLATELET VOLUME 9.9 fL (9.0-12.2); MONOCYTES # (AUTO) 0.4 10^3/uL (0.0-1.0); MONOCYTES % (AUTO) 7 % (0-12); NEUTROPHILS # (AUTO) 3.3 10^3/uL (1.8-7.8); NEUTROPHILS % (AUTO) 57 % (42-75); PLATELET COUNT 295 10^3/uL (130-400); WHITE BLOOD COUNT 5.7 10^3/uL (4.3-11.0)
[2022-10-10 05:51] LABS: ALANINE AMINOTRANSFERASE 25 U/L (0-55); ALBUMIN 3.4 GM/DL (3.2-4.5); ALKALINE PHOSPHATASE 89 U/L (40-136); BILIRUBIN,TOTAL 0.3 MG/DL (0.1-1.0); BUN/CREATININE RATIO 21; CALCIUM 8.9 MG/DL (8.5-10.1); CARBON DIOXIDE 22 MMOL/L (21-32); CHLORIDE 108 MMOL/L (98-107); CHOLESTEROL 178 MG/DL (< 200); CREATININE SERUM 1.02 MG/DL (0.60-1.30); GFR ESTIMATED 82; GLUCOSE 90 MG/DL (70-105); HDL CHOLESTEROL 30 MG/DL (40-60); POTASSIUM 3.6 MMOL/L (3.6-5.0); SODIUM 139 MMOL/L (135-145); TOTAL PROTEIN 6.5 GM/DL (6.4-8.2); TRIGLYCERIDES 122 MG/DL (<150); VLDL CHOLESTEROL 24 MG/DL (5-40)
[2022-10-10] MEDS: RT-ALBUTEROL SULF 2.5 MG/3 ML PRE-MIX VIAL INH SCH ×2 (07:13→19:56)
[2022-10-10] MEDS: ENOXAPARIN 80 MG/0.8 ML (LOVENOX) SYR SC SCH (08:05)
[2022-10-10] MEDS: DOCUSATE SODIUM 100 MG (COLACE) CAP PO SCH ×2 (08:07→19:29)
[2022-10-10] MEDS: ASPIRIN 81 MG CHEW (CHILDREN'S ASA) PO SCH (08:07)
[2022-10-10] MEDS ORDERED: CLOPIDOGREL 75 MG (PLAVIX) TABLET PO SCH (09:00)
--- NOTE | 2022-10-10 10:59 | Progress Note ---
Subjective Subjective/Events-last exam States he is feeling fine now, was fine when he got to the hospital. No dizziness, no chest pain. Objective Exam Last Set of Vital Signs Vital Signs Date Time Temp Pulse Resp B/P (MAP) Pulse Ox O2 Delivery O2 Flow Rate FiO2 10/10/22 08:00 Room Air 10/10/22 07:54 36.7 75 18 176/98 (124) 93 10/10/22 07:13 0.00 10/09/22 10:38 21 Capillary Refill : Less Than 3 Seconds I&O Intake and Output 10/10/22 00:00 Intake Total 1150 ml Balance 1150 ml Intake Oral 1150 ml # Voids 2 Daily Weight Change No General: Alert, Oriented X3, No Acute Distress Lungs: Clear to Auscultation, Normal Air Movement Heart: Regular Rate, No Murmurs Extremities: No Edema Neuro: Normal Speech Psych/Mental Status: Other (appears anxious, rocking at edge of bed) Results/Procedures Lab Laboratory Tests 10/10/22 05:05: White Blood Count 5.7, Red Blood Count 4.98, Hemoglobin 12.8L, Hematocrit 40, Mean Corpuscular Volume 80, Mean Corpuscular Hemoglobin 26, Mean Corpuscular Hemoglobin Concent 32, Red Cell Distribution Width 14.3, Platelet Count 295, Mean Platelet Volume 9.9, Immature Granulocyte % (Auto) 0, Neutrophils (%) (Auto) 57, Lymphocytes (%) (Auto) 29, Monocytes (%) (Auto) 7, Eosinophils (%) (Auto) 5, Basophils (%) (Auto) 1, Neutrophils # (Auto) 3.3, Lymphocytes # (Auto) 1.6, Monocytes # (Auto) 0.4, Eosinophils # (Auto) 0.3, Basophils # (Auto) 0.1, Immature Granulocyte # (Auto) 0.0, Sodium Level 139, Potassium Level 3.6, Chloride Level 108H, Carbon Dioxide Level 22, Anion Gap 9, Blood Urea Nitrogen 21H, Creatinine 1.02, Estimat Glomerular Filtration Rate 82, BUN/Creatinine Ratio 21, Glucose Level 90, Calcium Level 8.9, Corrected Calcium 9.4, Total Bilirubin 0.3, Aspartate Amino Transf (AST/SGOT) 14, Alanine Aminotransferase (ALT/SGPT) 25, Alkaline Phosphatase 89, Troponin I < 0.028, Total Protein 6.5, Albumin 3.4, Triglycerides Level 122, Cholesterol Level 178, LDL Cholesterol Direct 130H, VLDL Cholesterol 24, HDL Cholesterol 30L Assessment/Plan Assessment/Plan (1) Chest pain Status: Acute Assessment & Plan: Troponins neg, no acute EKG changes. Stress test pending, appreciate Cardiology recommendations. (2) Chronic systolic congestive heart failure Status: Chronic Assessment & Plan: Echo pending. BNP nml. (3) Depression Status: Chronic (4) Hypertension Status: Chronic (5) Hyperlipidemia Status: Chronic (6) COPD (chronic obstructive pulmonary disease) Status: Chronic (7) DVT prophylaxis Status: Acute Assessment & Plan: Enoxaparin Clinical Quality Measures AMI/AHF: ASA po Prior to arrival: Yes (324 MG) SAMIR JEAN MD Oct 10, 2022 10:59
[2022-10-10] MEDS ORDERED: ACET-2267 PO (11:06)
[2022-10-10] MEDS ORDERED: ASPI-1238 PO (11:06)
[2022-10-10] MEDS ORDERED: CATHETER FLUSH 10 ML SYR IVP PRN (11:15)
[2022-10-10] MEDS ORDERED: REGADENOSON 0.4 MG/5 ML SYR (LEXISCAN) IV ONE (12:04)
--- NOTE | 2022-10-10 17:25 | Progress Note - Cardiology ---
Cardiology SOAP Progress Note Subjective: No cp or palp or syncope or shortness of breath No n/v/d No focal weakness Some gen weakness No swelling Objective: I&O/Vital Signs 10/10/22 10/10/22 10/10/22 10/10/22 07:13 07:13 07:54 08:00 Temp 36.7 Pulse 69 75 Resp 18 B/P (MAP) 176/98 (124) Pulse Ox 94 93 O2 Delivery Room Air Room Air Room Air O2 Flow Rate 0.00 10/10/22 10/10/22 10/10/22 10/10/22 12:00 12:06 12:07 15:49 Temp 36.7 36.6 37.0 Pulse 75 64 59 81 Resp 18 18 18 B/P (MAP) 176/98 (124) 173/84 (113) 181/101 (127) 130/76 (94) Pulse Ox 93 94 98 93 O2 Delivery Room Air Room Air Room Air Room Air O2 Flow Rate 0.00 0.00 10/10/22 00:00 Intake Total 1150 ml Balance 1150 ml Constitutional: AAO x 3, well-developed, well-nourished Respiratory: No accessory muscle use; chest expansion is symmetric, chest is bilaterally symmetric, other (generally diminished air entry and prolonged exp phasee) Cardiovascular: regular rate-rhythm, S1 and S2, systolic murmur (soft HEIDI at card base) Gastrointestional: No tender; soft; No guarding, No rebound; audible bowel sounds Extremities: No clubbing, No cyanosis, No significant edema Neurologic/Psychiatric: oriented x 3, other (moves all limbs equally) Skin: No rash, No ulcerations Results/Procedures: Labs Laboratory Tests 10/10/22 05:05: White Blood Count 5.7, Red Blood Count 4.98, Hemoglobin 12.8L, Hematocrit 40, Mean Corpuscular Volume 80, Mean Corpuscular Hemoglobin 26, Mean Corpuscular He moglobin Concent 32, Red Cell Distribution Width 14.3, Platelet Count 295, Mean Platelet Volume 9.9, Immature Granulocyte % (Auto) 0, Neutrophils (%) (Auto) 57, Lymphocytes (%) (Auto) 29, Monocytes (%) (Auto) 7, Eosinophils (%) (Auto) 5, Basophils (%) (Auto) 1, Neutrophils # (Auto) 3.3, Lymphocytes # (Auto) 1.6, Monocytes # (Auto) 0.4, Eosinophils # (Auto) 0.3, Basophils # (Auto) 0.1, Immature Granulocyte # (Auto) 0.0, Sodium Level 139, Potassium Level 3.6, Chloride Level 108H, Carbon Dioxide Level 22, Anion Gap 9, Blood Urea Nitrogen 21H, Creatinine 1.02, Estimat Glomerular Filtration Rate 82, BUN/Creatinine Ratio 21, Glucose Level 90, Calcium Level 8.9, Corrected Calcium 9.4, Total Bilirubin 0.3, Aspartate Amino Transf (AST/SGOT) 14, Alanine Aminotransferase (ALT/SGPT) 25, Alkaline Phosphatase 89, Troponin I < 0.028, Total Protein 6.5, Albumin 3.4, Triglycerides Level 122, Cholesterol Level 178, LDL Cholesterol Direct 130H, VLDL Cholesterol 24, HDL Cholesterol 30L A/P: Assessment: Dizziness and shortness of breath of undetermined etiology CAD - h/o NSTEMI on Jul 02, 2020 treated with PCI: s/p Resolute [place] 2.0 x 15 mm drug-eluting stent to the first diag. Mild to mod dz of the RCA. Mild dz LAD - MPI of 10/10/22: no ischemia or infarction, LVEF 62% H/o transient ICM, none currently - Echocardiogram of Jul 02, [address] Ortega showed LVEF 25-30%. Grade 1 diastolic dysfunction. PASP 20-25 mmHg - Echocardiogram of Aug 05, 2020 showed LVEF 50-55%. Mild MR. Mild AoR. PASP 20 mmHg - Echocardiogram of 10/10/22: LVEF 55-60% Hypertension, controlled Tobaccoism HLD - statin tx Plan: * Continue DAPT, bb, statin * I reviewed the results of his cardiac w/u with him (summarized above) * Advised to quit smoking immediately and completely * Ok to d/c from cardiac standpoint. Outpt f/u advised Clinical Quality Measures AMI/AHF: ASA po Prior to arrival: Yes (324 MG) ESTER ALBERT MD FACP FAC CCDS Oct 10, 2022 17:25
[2022-10-10] MEDS ORDERED: ATOR40TA PO (18:08)
[2022-10-10] MEDS ORDERED: CLOP75TA28 PO (18:08)
[2022-10-10] MEDS ORDERED: MTP25TSR PO (18:08)
--- NOTE | 2022-10-10 19:20 | Discharge Summary ---
Discharge Summary Hospital Course Problems/Diagnosis: (1) Chest pain Status: Acute Assessment & Plan: Troponins neg, no acute EKG changes. Stress test done, no ischemia or infarction, LVEF 62% (2) Chronic systolic congestive heart failure Status: Chronic Assessment & Plan: - Echocardiogram of 10/10/22: LVEF 55-60%. BNP nml. (3) Depression Status: Chronic (4) Hypertension Status: Chronic (5) Hyperlipidemia Status: Chronic (6) COPD (chronic obstructive pulmonary disease) Status: Chronic (7) Not taking medication for chronic disease Assessment & Plan: Meds refilled. Hospital Course Date of Admission: Oct 09, 2022 at 08:05 Admission Diagnosis : Family Physician/Provider: José Antonio Marie MD Date of Discharge: 10/10/22 Discharge Diagnosis: See problem list Hospital Course: See problem list Labs and Pending Lab Test: Laboratory Tests 10/10/22 05:05: White Blood Count 5.7, Red Blood Count 4.98, Hemoglobin 12.8L, Hematocrit 40, Mean Corpuscular Volume 80, Mean Corpuscular Hemoglobin 26, Mean Corpuscular Hemoglobin Concent 32, Red Cell Distribution Width 14.3, Platelet Count 295, Mean Platelet Volume 9.9, Immature Granulocyte % (Auto) 0, Neutrophils (%) (Auto) 57, Lymphocytes (%) (Auto) 29, Monocytes (%) (Auto) 7, Eosinophils (%) (Auto) 5, Basophils (%) (Auto) 1, Neutrophils # (Auto) 3.3, Lymphocytes # (Auto) 1.6, Monocytes # (Auto) 0.4, Eosinophils # (Auto) 0.3, Basophils # (Auto) 0.1, Immature Granulocyte # (Auto) 0.0, Sodium Level 139, Potassium Level 3.6, Chloride Level 108H, Carbon Dioxide Level 22, Anion Gap 9, Blood Urea Nitrogen 21H, Creatinine 1.02, Estimat Glomerular Filtration Rate 82, BUN/Creatinine Ratio 21, Glucose Level 90, Calcium Level 8.9, Corrected Calcium 9.4, Total Bilirubin 0.3, Aspartate Amino Transf (AST/SGOT) 14, Alanine Aminotransferase (ALT/SGPT) 25, Alkaline Phosphatase 89, Troponin I < 0.028, Total Protein 6.5, Albumin 3.4, Triglycerides Level 122, Cholesterol Level 178, LDL Cholesterol Direct 130H, VLDL Cholesterol 24, HDL Cholesterol 30L Home Meds Active Metoprolol Succinate 25 Mg Tab.er.24h 25 Mg PO DAILY Lipitor (Atorvastatin Calcium) 40 Mg Tablet 40 Mg PO HS Clopidogrel (Clopidogrel Bisulfate) 75 Mg Tablet 75 Mg PO DAILY Reported Tylenol Extra Strength (Acetaminophen) 500 Mg Tablet 1,000 Mg PO Q8H PRN TAKES 2 (500MG) TABS Aspirin EC (Aspirin) 81 Mg Tablet.dr 81 Mg PO DAILY Assessment/Pt DC Instructions Follow up with Cardiology in a month. Follow up with primary provider within a week of discharge. Discharge Diet: Cardiac Diet Activity as Tolerated: Yes Discharge Physical Examination Allergies: Coded Allergies: No Known Drug Allergies (Unverified , 07/02/20) General Appearance: No Apparent Distress Respiratory: Lungs Clear, Normal Breath Sounds Cardiovascular: Regular Rate, Rhythm, No Edema Skin: Normal Color, Warm/Dry Neurologic/Psychiatric: Alert, Normal Mood/Affect Clinical Quality Measures AMI/AHF: ASA po Prior to arrival: Yes (324 MG) SAMIR JEAN MD Oct 10, 2022 19:20
== END 2022-10-10 20:20 | disposition home or self-care (01) ==
LOC: EDUNIT# 13:11 → ER FS 13:12 → 4TH 10-09 08:04 → UNDOADMOB 10-09 08:05 → 4TH 10-09 08:05 → ER FS 10-09 08:05 → 4TH 10-09 08:05 → UNDODISOB 10-10 20:20
PROVIDERS: ADMIT Internal Medicine; ATTEND Family Medicine
DX: I11.0 Hypertensive heart disease with heart failure (principal); I50.22 Chronic systolic (congestive) heart failure; I25.10 Atherosclerotic heart disease of native coronary artery without angina pectoris; I25.2 Old myocardial infarction; E78.5 Hyperlipidemia, unspecified; J44.9 Chronic obstructive pulmonary disease, unspecified; F32.A Depression, unspecified; F17.210 Nicotine dependence, cigarettes, uncomplicated; Z79.82 Long term (current) use of aspirin; Z79.899 Other long term (current) drug therapy; Z91.199 Patient's noncompliance with other medical treatment and regimen due to unspecified reason
CPT/HCPCS: 36415; 71045; 71275; 78452; 80053 ×2; 80061; 83880; 84484 ×2; 85025 ×2; 93005; 93017; 94640 ×2; 94760 ×2; 99283; A9502; C8929; 93306; 96372; G0378; Q9967